=== PATIENT | male | born 1980 | race Two or more races ===

== ENCOUNTER 2021-03-17 06:23 | Inpatient (IN) | payer OTHER ==
[2021-03-17 06:36] VITALS: BMI 29.0
[2021-03-17 08:47] LABS: HEMATOCRIT 31.3 % (35.4-49); MCHC 35.2 g/dl (32.0-35.9); MEAN PLT VOLUME 7.5 fl (7.5-11.1); PLATELET COUNT 216 10^3/uL (134-434); RBC 3.56 M/mm3 (4.00-5.60); RDW 13.2 % (11.9-15.9)
[2021-03-17 08:52] LABS: INR 1.19 (0.83-1.09); PROTHROMBIN TIME (PATIENT) 13.3 SEC (9.7-13.0)
[2021-03-17 08:55] LABS: ACTIVATED PTT 28.8 SECONDS (25.2-36.5)
[2021-03-17 09:06] LABS: CALCIUM 8.9 mg/dL (8.5-10.1)
[2021-03-17 09:08] LABS: BLOOD UREA NITROGEN 39.2 mg/dL (7-18)
[2021-03-17 09:10] LABS: CREATININE 2.2 mg/dL (0.55-1.3)
[2021-03-17 09:11] LABS: BILIRUBIN,TOTAL 0.6 mg/dL (0.2-1); TOT PROT 5.8 g/dl (6.4-8.2)
[2021-03-17] MEDS ORDERED: LACTATED RINGERS SOLUTION 1,000 ML IV SCH (10:00)
[2021-03-17] MEDS ORDERED: HEPARIN NA (PORCINE) 5,000 UNITS/ML 1ML VIAL ONE ×2 (10:19→11:28)
[2021-03-17] MEDS ORDERED: LIDOCAINE HCL 1%, 10 MG/ML (20ML VIAL) ONE (10:19)
[2021-03-17] MEDS ORDERED: NITROGLYCERIN 50 MG/10 ML VIAL IVPB ONE (10:19)
[2021-03-17] MEDS ORDERED: amLODIPine BESYLATE 5 MG TABLET (FP) PO ONE ×2 (10:21→15:27)
[2021-03-17] MEDS ORDERED: LIDOCAINE HCL 1%, 10 MG/ML (20ML VIAL) NR ONE ×3 (10:40→12:19)
[2021-03-17] MEDS ORDERED: IOVERSOL 320 MG/ML ML IV ONE ×2 (10:41→12:30)
[2021-03-17] MEDS ORDERED: HEPARIN NA (PORCINE) 5,000 UNITS/ML 1ML VIAL SQ ONE ×2 (10:41→12:21)
[2021-03-17] MEDS ORDERED: ceFAZolin SODIUM 1 GM VIAL ONE (10:48)
[2021-03-17 10:52] LABS: ANISOCYTOSIS 0; MACROCYTOSIS 0; PLATELET ESTIMATE NORMAL
[2021-03-17] MEDS ORDERED: LIDOCAINE HCL/PF 2% SDV 5ML VIAL ONE (10:52)
[2021-03-17] MEDS ORDERED: DEXMEDETOMIDINE HCL 200 MCG/2 ML IVPB ONE (10:55)
[2021-03-17] MEDS ORDERED: ACETAMINOPHEN INJECTION 100 ML IVPB ONE (10:56)
[2021-03-17] MEDS ORDERED: MIDAZOLAM HCL 2 MG/2 ML SINGLE DOSE VIAL ONE (12:06)
[2021-03-17] MEDS ORDERED: ceFAZolin 2 GRAM PREMIX BAG IVPB ONE (12:10)
[2021-03-17] MEDS ORDERED: ALTEPLASE (CATHFLO) 2 MG/2 ML VIAL CVP ONE (12:35)
[2021-03-17] MEDS ORDERED: hydrALAZINE HCL 20 MG/ML VIAL ONE (13:40)
[2021-03-17] MEDS ORDERED: HEPARIN NA (PORCINE) 5,000 UNITS/ML 1ML VIAL IVPUSH PRN (15:19)
[2021-03-17] MEDS: INSULIN SLIDING SCALE (NOVOLOG) 1 VIAL SQ SCH (16:59)
[2021-03-17 19:22] LABS: EPI CELLS 13 /uL (0-25.1); HYALINE CASTS 2 /uL (0-3.1); URINE APPEARANCE CLEAR; URINE BACTERIA 8 /uL (0-1359); URINE BILIRUBIN NEGATIVE (NEGATIVE); URINE COLOR YELLOW; URINE GLUCOSE (UA) 3+ (NEGATIVE); URINE KETONE NEGATIVE (NEGATIVE); URINE LEUK ESTERASE NEGATIVE (NEGATIVE); URINE NITRITE NEGATIVE (NEGATIVE); URINE PROTEIN 4+ (NEGATIVE); URINE RBC 71 /uL (0-23.9); URINE UROBILINOGEN 0.2 mg/dL (0.2-1.0); URINE WBC 10 /uL (0-25.8)
[2021-03-17] MEDS: HEPARIN - 25,000 UNIT in SODIUM CHLORIDE 495 ML IV SCH (19:42)
[2021-03-18] MEDS: HEPARIN NA (PORCINE) 5,000 UNITS/ML 1ML VIAL IVPUSH PRN ×3 (03:02→21:37)
[2021-03-18] MEDS: INSULIN SLIDING SCALE (NOVOLOG) 1 VIAL SQ SCH ×3 (06:38→17:19)
[2021-03-18] MEDS ORDERED: INSULIN SLIDING SCALE (NOVOLOG) 1 VIAL SQ SCH (08:00)
[2021-03-18] MEDS ORDERED: ONDANSETRON 4 MG/2 ML VIAL IVPUSH PRN (09:33)
[2021-03-18 09:41] LABS: INR 0.9 (0.83-1.09); PROTHROMBIN TIME (PATIENT) 10.5 SEC (9.7-13.0)
[2021-03-18 09:43] LABS: HEMATOCRIT 29.3 % (35.4-49); HEMOGLOBIN 10.1 GM/dL (11.7-16.9); MCH 30.5 pg (25.7-33.7); MCHC 34.4 g/dl (32.0-35.9); MEAN CELL VOLUME 88.6 fl (80-96); MEAN PLT VOLUME 7.8 fl (7.5-11.1); PLATELET COUNT 225 10^3/uL (134-434); RBC 3.31 M/mm3 (4.00-5.60); RDW 13.2 % (11.9-15.9); WHITE BLOOD COUNT 5.9 K/mm3 (4.0-10.0)
[2021-03-18 09:44] LABS: ACTIVATED PTT 32.2 SECONDS (25.2-36.5)
[2021-03-18 09:57] LABS: CALCIUM 8.2 mg/dL (8.5-10.1)
[2021-03-18 09:58] LABS: BLOOD UREA NITROGEN 36.4 mg/dL (7-18); MAGNESIUM 2.1 mg/dL (1.8-2.4)
[2021-03-18] MEDS ORDERED: levETIRAcetam 500 MG TABLET (FP) PO SCH (10:00)
[2021-03-18 10:01] LABS: CREATININE 2.6 mg/dL (0.55-1.3); PHOSPHOROUS 3.7 mg/dL (2.5-4.9)
[2021-03-18 10:02] LABS: BILIRUBIN,TOTAL 0.6 mg/dL (0.2-1); TOT PROT 4.7 g/dl (6.4-8.2)
[2021-03-18 10:07] LABS: ALBUMIN 1.5 g/dl (3.4-5.0)
[2021-03-18] MEDS: amLODIPine BESYLATE 10 MG TABLET (FP) PO SCH (10:16)
[2021-03-18] MEDS: levETIRAcetam 500 MG TABLET (FP) PO SCH ×2 (13:21→21:19)
[2021-03-18] MEDS: HEPARIN - 25,000 UNIT in SODIUM CHLORIDE 495 ML IV SCH ×3 (16:14→22:27)
[2021-03-18] MEDS: SODIUM CHLORIDE 0.45% 1,000 ML IV SCH (16:21)
[2021-03-18] MEDS ORDERED: WARFARIN NA 5 MG TABLET PO ONE (18:00)
[2021-03-18] MEDS ORDERED: WARFARIN PROTOCOL PO SCH (18:00)
[2021-03-18] MEDS: INSULIN (LEVEMIR) 100 UNITS/ML UNITS SQ SCH (21:18)
[2021-03-18] MEDS ORDERED: LISINOPRIL 10 MG TABLET PO SCH (22:00)
[2021-03-19] MEDS: SODIUM CHLORIDE 0.45% 1,000 ML IV SCH ×3 (02:14→15:15)
[2021-03-19] MEDS: INSULIN (LEVEMIR) 100 UNITS/ML UNITS SQ SCH ×2 (06:14→21:12)
[2021-03-19] MEDS: INSULIN (NOVOLOG MIX 70/30) 100 UNITS/ML MDV SQ SCH ×3 (06:15→17:29)
[2021-03-19] MEDS ORDERED: POLYETHYLENE GLYCOL (HEALTHYLAX) 3350 17 GM PACKET PO PRN (06:55)
[2021-03-19 08:37] LABS: HEMATOCRIT 26.7 % (35.4-49); HEMOGLOBIN 9.3 GM/dL (11.7-16.9); MCH 30.6 pg (25.7-33.7); MCHC 34.7 g/dl (32.0-35.9); MEAN CELL VOLUME 88.4 fl (80-96); MEAN PLT VOLUME 7.3 fl (7.5-11.1); PLATELET COUNT 223 10^3/uL (134-434); RBC 3.02 M/mm3 (4.00-5.60); RDW 13.6 % (11.9-15.9)
[2021-03-19 08:42] LABS: INR 0.92 (0.83-1.09); PROTHROMBIN TIME (PATIENT) 10.3 SEC (9.7-13.0)
[2021-03-19 08:45] LABS: ACTIVATED PTT 39.7 SECONDS (25.2-36.5)
[2021-03-19 09:04] LABS: ALBUMIN 1.6 g/dl (3.4-5.0); BLOOD UREA NITROGEN 37.6 mg/dL (7-18); CALCIUM 7.7 mg/dL (8.5-10.1)
[2021-03-19 09:07] LABS: CREATININE 3.1 mg/dL (0.55-1.3)
[2021-03-19 09:08] LABS: BILIRUBIN,TOTAL 0.4 mg/dL (0.2-1); TOT PROT 4.8 g/dl (6.4-8.2)
[2021-03-19] MEDS: amLODIPine BESYLATE 10 MG TABLET (FP) PO SCH (09:42)
[2021-03-19] MEDS: levETIRAcetam 500 MG TABLET (FP) PO SCH ×2 (09:42→21:12)
[2021-03-19] MEDS: HEPARIN NA (PORCINE) 5,000 UNITS/ML 1ML VIAL IVPUSH PRN (09:55)
[2021-03-19] MEDS: HEPARIN - 25,000 UNIT in SODIUM CHLORIDE 495 ML IV SCH (09:56)
[2021-03-19] MEDS: APIXABAN 5 MG TABLET PO SCH ×2 (13:23→21:12)
[2021-03-19] MEDS ORDERED: WARFARIN NA 5 MG TABLET PO SCH (18:00)
[2021-03-19] MEDS ORDERED: ATORVASTATIN CA 20 MG TABLET (FP) PO SCH (22:00)
[2021-03-19] MEDS ORDERED: ATORVASTATIN CA 40 MG TABLET (FP) PO SCH (22:00)
[2021-03-20] MEDS: SODIUM CHLORIDE 0.45% 1,000 ML IV SCH (05:54)
[2021-03-20 08:33] LABS: HEMATOCRIT 27.8 % (35.4-49); HEMOGLOBIN 9.6 GM/dL (11.7-16.9); MCH 30.3 pg (25.7-33.7); MCHC 34.5 g/dl (32.0-35.9); MEAN CELL VOLUME 87.7 fl (80-96); MEAN PLT VOLUME 7.1 fl (7.5-11.1); PLATELET COUNT 220 10^3/uL (134-434); RBC 3.17 M/mm3 (4.00-5.60); RDW 13.9 % (11.9-15.9); WHITE BLOOD COUNT 4.3 K/mm3 (4.0-10.0)
[2021-03-20 09:06] LABS: CALCIUM 8.4 mg/dL (8.5-10.1)
[2021-03-20 09:07] LABS: BLOOD UREA NITROGEN 30.9 mg/dL (7-18)
[2021-03-20 09:10] LABS: CREATININE 2.1 mg/dL (0.55-1.3)
[2021-03-20] MEDS: INSULIN (LEVEMIR) 100 UNITS/ML UNITS SQ SCH (09:47)
[2021-03-20] MEDS: INSULIN (NOVOLOG MIX 70/30) 100 UNITS/ML MDV SQ SCH ×2 (09:47→11:38)
[2021-03-20] MEDS: APIXABAN 5 MG TABLET PO SCH (10:28)
[2021-03-20] MEDS: levETIRAcetam 500 MG TABLET (FP) PO SCH (10:28)
[2021-03-20] MEDS: amLODIPine BESYLATE 10 MG TABLET (FP) PO SCH (10:28)
[2021-03-20 12:33] VITALS: BP 141/88; PULSE 95; TEMP 97.9
== END 2021-03-20 16:24 | disposition home or self-care (01) | DRG 182 ==
LOC: JER 06:23 → JERBED 08:00 → J5S 15:40
PROVIDERS: ATTEND Internal Medicine
PROC: 06CM3ZZ Extirpation of Matter from Right Femoral Vein, Percutaneous Approach (ICD-10-PCS; principal; 2021-03-18)
PROC: 067M3ZZ Dilation of Right Femoral Vein, Percutaneous Approach (ICD-10-PCS; 2021-03-18)
PROC: 067Y3ZZ Dilation of Lower Vein, Percutaneous Approach (ICD-10-PCS; 2021-03-18)
PROC: 3E03317 Introduction of Other Thrombolytic into Peripheral Vein, Percutaneous Approach (ICD-10-PCS; 2021-03-18)
DX: I82.411 Acute embolism and thrombosis of right femoral vein (principal); I82.431 Acute embolism and thrombosis of right popliteal vein; I12.9 Hypertensive chronic kidney disease with stage 1 through stage 4 chronic kidney disease, or unspecified chronic kidney disease; E11.22 Type 2 diabetes mellitus with diabetic chronic kidney disease; N18.32 Chronic kidney disease, stage 3b; N17.9 Acute kidney failure, unspecified; R11.2 Nausea with vomiting, unspecified; G40.909 Epilepsy, unspecified, not intractable, without status epilepticus
CPT/HCPCS: 36415; 71046-TC-FY; 76000-TC-FY; 76775-TC; 76856-TC; 80048; 80053; 80061; 81003; 82570; 82962; 83036; 83735; 84100; 84156; 84300; 85025; 85027; 85610; 85730; 86850; 86900; 86901; 93005; 93010; 94760; 99285-25; C9803; J0131; J1644; J2997; U0003; U0005

== ENCOUNTER 2021-06-25 08:52 | Inpatient (IN) | payer OTHER ==
[~2021-06-25 08:52] MED LIST: HEPARIN NA (PORCINE) 5,000 UNITS/ML 1ML VIAL SQ ONE; IOVERSOL 320 MG/ML ML IV ONE; LIDOCAINE HCL 1%, 10 MG/ML (20ML VIAL) NR ONE
[2021-06-25] MEDS ORDERED: ACETAMINOPHEN 1000 MG/100 ML BAG IVPB ONE (09:51)
[2021-06-25] MEDS ORDERED: ACETAMINOPHEN INJECTION 100 ML IVPB ONE (09:54)
[2021-06-25 10:13] LABS: BASO % 0.7 % (0-2.0); EOS % 1.4 % (0-4.5); HEMOGLOBIN 10.7 GM/dL (11.7-16.9); LYMPH % 29.5 % (8-40); MCH 29.2 pg (25.7-33.7); MCHC 32.3 g/dl (32.0-35.9); MEAN CELL VOLUME 90.3 fl (80-96); MEAN PLT VOLUME 7.8 fl (7.5-11.1); MONO % 8.8 % (3.8-10.2); NEUT % 59.6 % (42.8-82.8); PLATELET COUNT 267 10^3/uL (134-434); RBC 3.66 M/mm3 (4.00-5.60); RDW 14.9 % (11.9-15.9); WHITE BLOOD COUNT 3.7 K/mm3 (4.0-10.0)
[2021-06-25 10:18] LABS: INR 0.91 (0.83-1.09); PROTHROMBIN TIME (PATIENT) 10.4 SEC (9.7-13.0)
[2021-06-25 10:20] LABS: ACTIVATED PTT 24.7 SECONDS (25.2-36.5)
[2021-06-25 10:37] LABS: CHLORIDE 119 mmol/L (98-107); SODIUM 147 mmol/L (136-145)
[2021-06-25 10:39] LABS: CALCIUM 8.4 mg/dL (8.5-10.1)
[2021-06-25 10:40] LABS: ALBUMIN 2.1 g/dl (3.4-5.0); ANION GAP 3 MMOL/L (8-16); BLOOD UREA NITROGEN 17.2 mg/dL (7-18); CO2 26 mmol/L (21-32); GLUCOSE,RANDOM 138 mg/dL (74-106)
[2021-06-25 10:43] LABS: CREATININE 1.8 mg/dL (0.55-1.3); SGOT/AST 14 U/L (15-37); SGPT/ALT 14 U/L (13-61)
[2021-06-25 10:44] LABS: TOT PROT 5.8 g/dl (6.4-8.2)
[2021-06-25 10:45] LABS: BILIRUBIN,TOTAL 0.5 mg/dL (0.2-1)
[2021-06-25 10:46] LABS: ALK PHOS 109 U/L (45-117)
[2021-06-25] MEDS ORDERED: ACETAMINOPHEN 325 MG TABLET (FP) PO PRN ×2 (13:35→18:14)
[2021-06-25] MEDS ORDERED: SODIUM CHLORIDE 0.45% 1,000 ML IV SCH ×2 (13:45→18:14)
[2021-06-25] MEDS ORDERED: SODIUM CHLORIDE 1,000 ML IV SCH (13:45)
[2021-06-25] MEDS ORDERED: PROMETHAZINE HCL 25 MG/1 ML VIAL IVPUSH PRN ×2 (13:48→18:14)
[2021-06-25] MEDS ORDERED: ONDANSETRON 4 MG/2 ML VIAL IVPUSH PRN ×2 (13:48→18:14)
[2021-06-25] MEDS ORDERED: HEPARIN NA (PORCINE) 5,000 UNITS/ML 1ML VIAL ONE (13:50)
[2021-06-25] MEDS ORDERED: LIDOCAINE HCL 1%, 10 MG/ML (20ML VIAL) ONE (13:50)
[2021-06-25] MEDS ORDERED: LACTATED RINGERS SOLUTION 1,000 ML IV SCH ×2 (14:00→18:14)
[2021-06-25] MEDS ORDERED: PROPOFOL 20 ML ONE (14:01)
[2021-06-25] MEDS ORDERED: MIDAZOLAM HCL 2 MG/2 ML SINGLE DOSE VIAL ONE (14:02)
[2021-06-25] MEDS ORDERED: ceFAZolin SODIUM 1 GM VIAL IVPB ONE (14:26)
[2021-06-25] MEDS ORDERED: LIDOCAINE HCL 1%, 10 MG/ML (20ML VIAL) NR ONE (14:27)
[2021-06-25] MEDS ORDERED: HEPARIN NA (PORCINE) 5,000 UNITS/ML 1ML VIAL SQ ONE (14:52)
[2021-06-25] MEDS ORDERED: IOVERSOL 320 MG/ML ML IV ONE (14:52)
[2021-06-25] MEDS ORDERED: ALTEPLASE (CATHFLO) 2 MG/2 ML VIAL CVP ONE (14:57)
[2021-06-25] MEDS ORDERED: hydrALAZINE HCL 20 MG/ML VIAL ONE ×2 (15:57→17:30)
[2021-06-25] MEDS ORDERED: METOPROLOL TARTRATE 5 MG/5 ML VIAL ONE (15:57)
[2021-06-25] MEDS ORDERED: ONDANSETRON 4 MG/2 ML VIAL ONE (16:05)
[2021-06-25] MEDS ORDERED: oxyCODONE HCL 5 MG TABLET PO PRN (16:10)
[2021-06-25] MEDS ORDERED: INSULIN SLIDING SCALE (NOVOLOG) 1 VIAL SQ SCH (16:30)
[2021-06-25] MEDS ORDERED: hydrALAZINE HCL 20 MG/ML VIAL IVPUSH ONE (17:33)
[2021-06-25] MEDS: SODIUM CHLORIDE 0.45% 1,000 ML IV SCH (18:16)
[2021-06-25] MEDS ORDERED: ONDANSETRON 4 MG/2 ML VIAL IVPUSH ONE (20:05)
[2021-06-25] MEDS: ENOXAPARIN NA (PORCINE) 80 MG/0.8 ML DISP.SYRIN SQ SCH (21:32)
[2021-06-25] MEDS: ATORVASTATIN CA 40 MG TABLET (FP) PO SCH (21:32)
[2021-06-25] MEDS: levETIRAcetam 500 MG TABLET (FP) PO SCH (21:32)
[2021-06-25] MEDS: INSULIN (LEVEMIR) 100 UNITS/ML UNITS SQ SCH (21:33)
[2021-06-25] MEDS: INSULIN SLIDING SCALE (NOVOLOG) 1 VIAL SQ SCH (21:33)
[2021-06-25] MEDS ORDERED: levETIRAcetam 500 MG TABLET (FP) PO SCH (22:00)
[2021-06-25] MEDS ORDERED: ATORVASTATIN CA 40 MG TABLET (FP) PO SCH (22:00)
[2021-06-25] MEDS ORDERED: INSULIN (LEVEMIR) 100 UNITS/ML UNITS SQ SCH (22:00)
[2021-06-25] MEDS ORDERED: ENOXAPARIN NA (PORCINE) 100 MG/1 ML DISP.SYRIN SQ SCH ×2 (22:00)
[2021-06-26] MEDS: INSULIN (LEVEMIR) 100 UNITS/ML UNITS SQ SCH ×2 (06:10→21:43)
[2021-06-26] MEDS: INSULIN SLIDING SCALE (NOVOLOG) 1 VIAL SQ SCH ×4 (06:10→21:42)
[2021-06-26] MEDS: SODIUM CHLORIDE 0.45% 1,000 ML IV SCH (08:03)
[2021-06-26] MEDS ORDERED: ONDANSETRON 4 MG/2 ML VIAL IVPUSH PRN (09:01)
[2021-06-26 09:09] LABS: BASO % 0.7 % (0-2.0); EOS % 1.5 % (0-4.5); HEMATOCRIT 26.8 % (35.4-49); LYMPH % 20.4 % (8-40); MCHC 33.5 g/dl (32.0-35.9); MEAN CELL VOLUME 89.4 fl (80-96); MEAN PLT VOLUME 7.6 fl (7.5-11.1); MONO % 10.2 % (3.8-10.2); NEUT % 67.2 % (42.8-82.8); PLATELET COUNT 200 10^3/uL (134-434); RDW 14.8 % (11.9-15.9); WHITE BLOOD COUNT 4.9 K/mm3 (4.0-10.0)
[2021-06-26 09:38] LABS: ALBUMIN 1.7 g/dl (3.4-5.0)
[2021-06-26 09:39] LABS: CREATININE 2.7 mg/dL (0.55-1.3)
[2021-06-26 09:40] LABS: BLOOD UREA NITROGEN 23.6 mg/dL (7-18); PHOSPHOROUS 4.4 mg/dL (2.5-4.9); TOT PROT 4.7 g/dl (6.4-8.2)
[2021-06-26 09:41] LABS: CALCIUM 7.9 mg/dL (8.5-10.1); MAGNESIUM 1.8 mg/dL (1.8-2.4)
[2021-06-26] MEDS: levETIRAcetam 500 MG TABLET (FP) PO SCH ×2 (09:58→21:41)
[2021-06-26] MEDS: ENOXAPARIN NA (PORCINE) 80 MG/0.8 ML DISP.SYRIN SQ SCH ×2 (09:58→21:41)
[2021-06-26] MEDS: DOCUSATE SODIUM 100 MG CAPSULE (FP) PO SCH (09:58)
[2021-06-26] MEDS: Insulin (LOG) Aspart 100 UNITS/ML VIAL SQ SCH ×2 (11:15→17:07)
[2021-06-26] MEDS ORDERED: SODIUM CHLORIDE 1,000 ML IV STA (11:17)
[2021-06-26 15:41] LABS: BLOOD UREA NITROGEN 23.7 mg/dL (7-18); CALCIUM 7.9 mg/dL (8.5-10.1)
[2021-06-26 15:45] LABS: CREATININE 2.9 mg/dL (0.55-1.3)
[2021-06-26] MEDS ORDERED: hydrALAZINE HCL 10 MG TABLET PO PRN (16:33)
[2021-06-26] MEDS: amLODIPine BESYLATE 5 MG TABLET (FP) PO SCH (17:39)
[2021-06-26 17:47] LABS: EPI CELLS 19 /uL (0-25.1); HYALINE CASTS 2 /uL (0-3.1); URINE APPEARANCE CLEAR; URINE BACTERIA 13 /uL (0-1359); URINE BILIRUBIN NEGATIVE (NEGATIVE); URINE COLOR YELLOW; URINE GLUCOSE (UA) 2+ (NEGATIVE); URINE KETONE NEGATIVE (NEGATIVE); URINE LEUK ESTERASE NEGATIVE (NEGATIVE); URINE NITRITE NEGATIVE (NEGATIVE); URINE PROTEIN 4+ (NEGATIVE); URINE RBC 24 /uL (0-23.9); URINE WBC 11 /uL (0-25.8)
[2021-06-26 19:12] VITALS: BMI 28.8
[2021-06-26] MEDS: ATORVASTATIN CA 40 MG TABLET (FP) PO SCH (21:41)
[2021-06-27] MEDS: Insulin (LOG) Aspart 100 UNITS/ML VIAL SQ SCH ×3 (06:22→17:39)
[2021-06-27] MEDS: INSULIN SLIDING SCALE (NOVOLOG) 1 VIAL SQ SCH ×4 (06:23→21:15)
[2021-06-27] MEDS: INSULIN (LEVEMIR) 100 UNITS/ML UNITS SQ SCH ×2 (06:35→21:15)
[2021-06-27] MEDS: DOCUSATE SODIUM 100 MG CAPSULE (FP) PO SCH (10:02)
[2021-06-27] MEDS: levETIRAcetam 500 MG TABLET (FP) PO SCH ×2 (10:02→21:14)
[2021-06-27] MEDS: amLODIPine BESYLATE 5 MG TABLET (FP) PO SCH (10:02)
[2021-06-27] MEDS: ENOXAPARIN NA (PORCINE) 80 MG/0.8 ML DISP.SYRIN SQ SCH (10:02)
[2021-06-27 10:31] LABS: BASO % 0.4 % (0-2.0); EOS % 2.2 % (0-4.5); HEMOGLOBIN 8.7 GM/dL (11.7-16.9); MCHC 33.5 g/dl (32.0-35.9); MEAN CELL VOLUME 89.4 fl (80-96); MEAN PLT VOLUME 7.6 fl (7.5-11.1); MONO % 10.1 % (3.8-10.2); NEUT % 63.3 % (42.8-82.8); PLATELET COUNT 190 10^3/uL (134-434); RDW 14.7 % (11.9-15.9); WHITE BLOOD COUNT 4.2 K/mm3 (4.0-10.0)
[2021-06-27 10:52] LABS: CALCIUM 7.6 mg/dL (8.5-10.1)
[2021-06-27 10:53] LABS: ALBUMIN 1.7 g/dl (3.4-5.0); BLOOD UREA NITROGEN 30.4 mg/dL (7-18)
[2021-06-27 10:56] LABS: CREATININE 4.1 mg/dL (0.55-1.3)
[2021-06-27 10:57] LABS: BILIRUBIN,TOTAL 0.4 mg/dL (0.2-1); TOT PROT 4.7 g/dl (6.4-8.2)
[2021-06-27] MEDS ORDERED: ENOXAPARIN NA (PORCINE) 60 MG/0.6 ML DISP.SYRIN SQ ONE (16:00)
[2021-06-27] MEDS: ATORVASTATIN CA 40 MG TABLET (FP) PO SCH (21:14)
[2021-06-27] MEDS ORDERED: hydrALAZINE HCL 10 MG TABLET PO SCH (22:00)
[2021-06-28] MEDS ORDERED: hydrALAZINE HCL 10 MG TABLET PO SCH (05:34)
[2021-06-28] MEDS: hydrALAZINE HCL 25 MG TABLET (FP) PO SCH ×4 (05:51→21:41)
[2021-06-28] MEDS: Insulin (LOG) Aspart 100 UNITS/ML VIAL SQ SCH ×3 (06:05→17:15)
[2021-06-28] MEDS: INSULIN SLIDING SCALE (NOVOLOG) 1 VIAL SQ SCH ×4 (06:05→21:47)
[2021-06-28] MEDS: INSULIN (LEVEMIR) 100 UNITS/ML UNITS SQ SCH ×2 (06:27→21:49)
[2021-06-28] MEDS: amLODIPine BESYLATE 10 MG TABLET (FP) PO SCH (09:02)
[2021-06-28] MEDS: levETIRAcetam 500 MG TABLET (FP) PO SCH ×2 (09:02→21:42)
[2021-06-28] MEDS: DOCUSATE SODIUM 100 MG CAPSULE (FP) PO SCH (09:05)
[2021-06-28] MEDS: ENOXAPARIN NA (PORCINE) 100 MG/1 ML DISP.SYRIN SQ SCH (11:29)
[2021-06-28] MEDS ORDERED: hydrALAZINE HCL 25 MG TABLET (FP) PO ONE ×2 (12:00→17:27)
[2021-06-28 13:19] LABS: CALCIUM 7.7 mg/dL (8.5-10.1)
[2021-06-28 13:20] LABS: BLOOD UREA NITROGEN 29.4 mg/dL (7-18)
[2021-06-28 13:23] LABS: CREATININE 3.9 mg/dL (0.55-1.3)
[2021-06-28] MEDS ORDERED: WARFARIN NA 5 MG TABLET PO SCH (18:00)
[2021-06-28] MEDS ORDERED: WARFARIN PROTOCOL PO SCH (18:00)
[2021-06-28] MEDS: ATORVASTATIN CA 40 MG TABLET (FP) PO SCH (21:41)
[2021-06-29] MEDS: ACETAMINOPHEN 325 MG TABLET (FP) PO PRN ×2 (01:29→07:46)
[2021-06-29] MEDS: hydrALAZINE HCL 25 MG TABLET (FP) PO SCH ×2 (06:07→14:52)
[2021-06-29] MEDS: INSULIN (LEVEMIR) 100 UNITS/ML UNITS SQ SCH (06:07)
[2021-06-29] MEDS: Insulin (LOG) Aspart 100 UNITS/ML VIAL SQ SCH ×2 (06:08→12:15)
[2021-06-29] MEDS: INSULIN SLIDING SCALE (NOVOLOG) 1 VIAL SQ SCH ×2 (06:08→12:15)
[2021-06-29] MEDS: levETIRAcetam 500 MG TABLET (FP) PO SCH (09:55)
[2021-06-29] MEDS: ENOXAPARIN NA (PORCINE) 100 MG/1 ML DISP.SYRIN SQ SCH (09:55)
[2021-06-29] MEDS: amLODIPine BESYLATE 10 MG TABLET (FP) PO SCH (09:55)
[2021-06-29] MEDS: DOCUSATE SODIUM 100 MG CAPSULE (FP) PO SCH (09:58)
[2021-06-29 10:34] LABS: INR 0.91 (0.83-1.09); PROTHROMBIN TIME (PATIENT) 10.4 SEC (9.7-13.0)
[2021-06-29 10:49] LABS: CALCIUM 7.8 mg/dL (8.5-10.1)
[2021-06-29 10:50] LABS: ALBUMIN 1.9 g/dl (3.4-5.0); BLOOD UREA NITROGEN 32.2 mg/dL (7-18)
[2021-06-29 10:53] LABS: CREATININE 3.7 mg/dL (0.55-1.3); PHOSPHOROUS 4.5 mg/dL (2.5-4.9)
[2021-06-29 10:54] LABS: BILIRUBIN,TOTAL 0.4 mg/dL (0.2-1); TOT PROT 5.1 g/dl (6.4-8.2)
[2021-06-29 12:02] VITALS: TEMP 98
[2021-06-29 15:12] VITALS: BP 138/86; PULSE 104
[2021-06-29] MEDS ORDERED: WARFARIN NA 7.5 MG TABLET PO ONE (18:00)
== END 2021-06-29 16:37 | disposition left against medical advice (07) | DRG 182 ==
LOC: JER 08:52 → JERBED 12:25 → J5S 18:33
PROVIDERS: ADMIT Internal Medicine; ATTEND Internal Medicine
PROC: 067M3ZZ Dilation of Right Femoral Vein, Percutaneous Approach (ICD-10-PCS; 2021-06-25)
PROC: 3E04317 Introduction of Other Thrombolytic into Central Vein, Percutaneous Approach (ICD-10-PCS; 2021-06-25)
PROC: B51BZZA Fluoroscopy of Right Lower Extremity Veins, Guidance (ICD-10-PCS; 2021-06-25)
PROC: 06CM3ZZ Extirpation of Matter from Right Femoral Vein, Percutaneous Approach (ICD-10-PCS; principal; 2021-06-25 13:00)
DX: I82.401 Acute embolism and thrombosis of unspecified deep veins of right lower extremity (principal); N17.9 Acute kidney failure, unspecified; D68.59 Other primary thrombophilia; E87.0 Hyperosmolality and hypernatremia; I12.9 Hypertensive chronic kidney disease with stage 1 through stage 4 chronic kidney disease, or unspecified chronic kidney disease; N18.9 Chronic kidney disease, unspecified; D68.32 Hemorrhagic disorder due to extrinsic circulating anticoagulants; R60.0 Localized edema; E10.22 Type 1 diabetes mellitus with diabetic chronic kidney disease; G40.909 Epilepsy, unspecified, not intractable, without status epilepticus; M79.661 Pain in right lower leg; R80.9 Proteinuria, unspecified
CPT/HCPCS: 36415; 71045-TC-FY; 71275-TC; 76000-TC-FY; 76775-TC; 80048; 80053; 81003; 82436; 82550; 82553; 82962; 83036; 83735; 83880; 84100; 84133; 84300; 84484; 85025; 85610; 85730; 86850; 86900; 86901; 93005; 93010; 94010; 94760; 99285-25; C9803; J0131; J1644; J2997; U0003; U0005

== ENCOUNTER 2021-11-09 12:12 | Inpatient (IN) | payer OTHER ==
[2021-11-09] MEDS ORDERED: ASPIRIN 81 MG CHEWABLE TABLETS PO ONE (13:04)
[2021-11-09] MEDS ORDERED: ACETAMINOPHEN 1000 MG/100 ML BAG IVPB ONE (13:05)
[2021-11-09 13:21] LABS: BASO % 0.8 % (0-2.0); HEMATOCRIT 27.9 % (35.4-49); HEMOGLOBIN 9.4 GM/dL (11.7-16.9); LYMPH % 27.2 % (8-40); MCH 29.9 pg (25.7-33.7); MCHC 33.7 g/dl (32.0-35.9); MEAN CELL VOLUME 88.8 fl (80-96); MEAN PLT VOLUME 7.4 fl (7.5-11.1); MONO % 8.7 % (3.8-10.2); NEUT % 62.3 % (42.8-82.8); PLATELET COUNT 188 10^3/uL (134-434); RBC 3.15 M/mm3 (4.00-5.60); RDW 15.2 % (11.9-15.9)
[2021-11-09] MEDS ORDERED: ACETAMINOPHEN INJECTION 100 ML IVPB ONE (13:23)
[2021-11-09] MEDS ORDERED: ASPIRIN 81 MG CHEWABLE TABLETS ONE (13:23)
[2021-11-09 13:29] LABS: INR 3.15 (0.83-1.09); PROTHROMBIN TIME (PATIENT) 36.7 SEC (9.7-13.0)
[2021-11-09 13:31] LABS: ACTIVATED PTT 33.7 SECONDS (25.2-36.5)
[2021-11-09 13:52] LABS: CALCIUM 7.4 mg/dL (8.5-10.1)
[2021-11-09 13:53] LABS: ALBUMIN 2.3 g/dl (3.4-5.0); BLOOD UREA NITROGEN 45.4 mg/dL (7-18)
[2021-11-09 13:56] LABS: CREATININE 3.4 mg/dL (0.55-1.3); PHOSPHOROUS 3.9 mg/dL (2.5-4.9)
[2021-11-09 13:58] LABS: BILIRUBIN,TOTAL 0.4 mg/dL (0.2-1); TOT PROT 5.5 g/dl (6.4-8.2)
[2021-11-09 14:01] LABS: N-TERMINAL BNP 5890.2 pg/ml (5-125)
[2021-11-09] MEDS ORDERED: SODIUM CHLORIDE 0.9% 500 ML INFUS.BAG IV ONE (15:54)
[2021-11-09] MEDS: hydrALAZINE HCL 50 MG TABLET (FP) PO SCH (21:46)
[2021-11-09] MEDS: levETIRAcetam 500 MG TABLET (FP) PO SCH (21:46)
[2021-11-09] MEDS: CARVEDILOL 6.25 MG TABLET (FP) PO SCH (21:46)
[2021-11-09] MEDS: ISOSORBIDE MONONITRATE 30 MG TAB.SR.24H (FP) PO SCH (21:46)
[2021-11-09] MEDS: ATORVASTATIN CA 40 MG TABLET (FP) PO SCH (21:46)
[2021-11-09] MEDS: INSULIN SLIDING SCALE (NOVOLOG) 1 VIAL SQ SCH (21:49)
[2021-11-09] MEDS ORDERED: LISINOPRIL 20 MG TABLET PO SCH (22:00)
[2021-11-09] MEDS: HEPARIN - 25,000 UNIT in SODIUM CHLORIDE 495 ML IV SCH (22:28)
[2021-11-10 00:53] VITALS: BMI 28.7
[2021-11-10] MEDS: HEPARIN NA (PORCINE) 5,000 UNITS/ML 1ML VIAL IVPUSH PRN ×3 (05:47→23:24)
[2021-11-10] MEDS: hydrALAZINE HCL 50 MG TABLET (FP) PO SCH ×3 (06:45→21:26)
[2021-11-10] MEDS: INSULIN SLIDING SCALE (NOVOLOG) 1 VIAL SQ SCH ×4 (06:45→21:29)
[2021-11-10 07:39] LABS: INR 3.08 (0.83-1.09); PROTHROMBIN TIME (PATIENT) 35.8 SEC (9.7-13.0)
[2021-11-10] MEDS: levETIRAcetam 500 MG TABLET (FP) PO SCH ×2 (09:58→21:26)
[2021-11-10] MEDS: ISOSORBIDE MONONITRATE 30 MG TAB.SR.24H (FP) PO SCH (09:58)
[2021-11-10] MEDS: CARVEDILOL 6.25 MG TABLET (FP) PO SCH ×2 (09:58→21:26)
[2021-11-10] MEDS ORDERED: WARFARIN NA 5 MG TABLET PO SCH (18:00)
[2021-11-10] MEDS: ATORVASTATIN CA 40 MG TABLET (FP) PO SCH (21:26)
[2021-11-10] MEDS: HEPARIN - 25,000 UNIT in SODIUM CHLORIDE 495 ML IV SCH (23:20)
[2021-11-11] MEDS: hydrALAZINE HCL 50 MG TABLET (FP) PO SCH ×3 (06:23→21:51)
[2021-11-11] MEDS: INSULIN SLIDING SCALE (NOVOLOG) 1 VIAL SQ SCH ×4 (06:24→22:30)
[2021-11-11 08:26] LABS: BASO % 0.6 % (0-2.0); EOS % 0.9 % (0-4.5); HEMOGLOBIN 10.8 GM/dL (11.7-16.9); LYMPH % 30.7 % (8-40); MCH 30.2 pg (25.7-33.7); MCHC 33.6 g/dl (32.0-35.9); MEAN CELL VOLUME 89.9 fl (80-96); MEAN PLT VOLUME 7.9 fl (7.5-11.1); NEUT % 61.8 % (42.8-82.8); PLATELET COUNT 214 10^3/uL (134-434); RBC 3.56 M/mm3 (4.00-5.60); RDW 15.2 % (11.9-15.9); WHITE BLOOD COUNT 4.8 K/mm3 (4.0-10.0)
[2021-11-11 08:28] LABS: INR 1.45 (0.83-1.09); PROTHROMBIN TIME (PATIENT) 16.7 SEC (9.7-13.0)
[2021-11-11 08:52] LABS: ALBUMIN 2.5 g/dl (3.4-5.0)
[2021-11-11 08:53] LABS: BLOOD UREA NITROGEN 41.9 mg/dL (7-18); CALCIUM 7.8 mg/dL (8.5-10.1); MAGNESIUM 2.1 mg/dL (1.8-2.4)
[2021-11-11 08:56] LABS: CREATININE 3.3 mg/dL (0.55-1.3)
[2021-11-11 08:57] LABS: BILIRUBIN,TOTAL 1.3 mg/dL (0.2-1); TOT PROT 6.1 g/dl (6.4-8.2)
[2021-11-11] MEDS: levETIRAcetam 500 MG TABLET (FP) PO SCH ×2 (09:50→21:51)
[2021-11-11] MEDS: ISOSORBIDE MONONITRATE 30 MG TAB.SR.24H (FP) PO SCH (09:50)
[2021-11-11] MEDS: CARVEDILOL 12.5 MG TABLET (FP) PO SCH ×2 (09:51→21:51)
[2021-11-11] MEDS: HEPARIN NA (PORCINE) 5,000 UNITS/ML 1ML VIAL IVPUSH PRN ×2 (09:58→23:23)
[2021-11-11] MEDS: ATORVASTATIN CA 40 MG TABLET (FP) PO SCH (21:51)
[2021-11-11] MEDS: HEPARIN - 25,000 UNIT in SODIUM CHLORIDE 495 ML IV SCH (23:19)
[2021-11-12 03:20] VITALS: BP 140/82; PULSE 93; TEMP 98.6
== END 2021-11-12 03:23 | disposition short-term general hospital (02) | DRG 134 ==
LOC: JER 12:12 → JERBED 16:12 → J4W 20:23
PROVIDERS: ADMIT Internal Medicine
DX: I26.99 Other pulmonary embolism without acute cor pulmonale (principal); D68.59 Other primary thrombophilia; I13.0 Hypertensive heart and chronic kidney disease with heart failure and stage 1 through stage 4 chronic kidney disease, or unspecified chronic kidney disease; E11.22 Type 2 diabetes mellitus with diabetic chronic kidney disease; I50.22 Chronic systolic (congestive) heart failure; G40.909 Epilepsy, unspecified, not intractable, without status epilepticus; E78.00 Pure hypercholesterolemia, unspecified; R80.9 Proteinuria, unspecified; D64.9 Anemia, unspecified; N18.9 Chronic kidney disease, unspecified; I27.82 Chronic pulmonary embolism; I82.531 Chronic embolism and thrombosis of right popliteal vein
CPT/HCPCS: 0241U-QW; 36415; 71045-TC-FY; 71275-TC; 80053; 80061; 82962; 83735; 83880; 84100; 84443; 84484; 85025; 85610; 85730; 93005; 93010; 93306-TC; 93971-TC; 99285-25; J1644; Q9967

== ENCOUNTER 2022-09-02 13:05 | Inpatient (IN) | payer OTHER ==
[2022-09-02] MEDS ORDERED: HEPARIN NA (PORCINE) 5,000 UNITS/ML 1ML VIAL ONE (14:08)
[2022-09-02] MEDS ORDERED: LIDOCAINE HCL/PF 1% SDV 5ML VIAL ONE ×2 (14:08→14:10)
[2022-09-02 14:20] LABS: BASO % 0.9 % (0-2.0); EOS % 0.8 % (0-4.5); HEMATOCRIT 25.1 % (35.4-49); HEMOGLOBIN 8.7 GM/dL (11.7-16.9); LYMPH % 17.4 % (8-40); MCH 30.8 pg (25.7-33.7); MCHC 34.7 g/dl (32.0-35.9); MEAN CELL VOLUME 88.7 fl (80-96); MEAN PLT VOLUME 7.8 fl (7.5-11.1); MONO % 10.5 % (3.8-10.2); NEUT % 70.4 % (42.8-82.8); PLATELET COUNT 141 10^3/uL (134-434); RBC 2.83 M/mm3 (4.00-5.60); RDW 13.5 % (11.9-15.9); WHITE BLOOD COUNT 5.7 K/mm3 (4.0-10.0)
[2022-09-02 14:26] LABS: INR 3.08 (0.83-1.09); PROTHROMBIN TIME (PATIENT) 35.3 SEC (9.7-13.0)
[2022-09-02 14:29] LABS: ACTIVATED PTT 26.4 SECONDS (25.2-36.5)
[2022-09-02 14:40] LABS: CHLORIDE 112 mmol/L (98-107); SODIUM 140 mmol/L (136-145)
[2022-09-02 14:42] LABS: ALBUMIN 2.5 g/dl (3.4-5.0); ANION GAP 6 MMOL/L (8-16); BLOOD UREA NITROGEN 59.8 mg/dL (7-18); CO2 22 mmol/L (21-32); GLUCOSE,RANDOM 208 mg/dL (74-106); MAGNESIUM 2.3 mg/dL (1.8-2.4)
[2022-09-02 14:45] LABS: CREATININE 4.8 mg/dL (0.55-1.3); SGOT/AST 18 U/L (15-37); SGPT/ALT 21 U/L (13-61)
[2022-09-02] MEDS ORDERED: PROMETHAZINE HCL 25 MG/1 ML VIAL IVPB PRN (14:46)
[2022-09-02] MEDS ORDERED: ONDANSETRON 4 MG/2 ML VIAL IVPUSH PRN (14:46)
[2022-09-02 14:47] LABS: BILIRUBIN,TOTAL 0.5 mg/dL (0.2-1); TOT PROT 6.2 g/dl (6.4-8.2)
[2022-09-02 14:48] LABS: ALK PHOS 78 U/L (45-117)
[2022-09-02 14:52] LABS: CALCIUM 6.3 mg/dL (8.5-10.1)
[2022-09-02] MEDS ORDERED: MIDAZOLAM HCL 2 MG/2 ML SINGLE DOSE VIAL ONE (14:55)
[2022-09-02] MEDS ORDERED: PROPOFOL 20 ML ONE ×2 (14:55→16:21)
[2022-09-02] MEDS ORDERED: CALCIUM GLUCONATE 10% - 1,000 MG/10 ML VIAL IVPUSH ONE (14:55)
[2022-09-02] MEDS ORDERED: ceFAZolin SODIUM 1 GM VIAL ONE (14:56)
[2022-09-02] MEDS ORDERED: LIDOCAINE HCL/PF 2% SDV 5ML VIAL ONE (14:56)
[2022-09-02] MEDS ORDERED: SODIUM CHLORIDE 0.9% P/F 10 ML VIAL IJ ONE (14:56)
[2022-09-02] MEDS ORDERED: SODIUM CHLORIDE 1,000 ML IV SCH (15:00)
[2022-09-02] MEDS ORDERED: ALTEPLASE (CATHFLO) 2 MG/2 ML VIAL CVP ONE ×2 (15:00)
[2022-09-02] MEDS ORDERED: ceFAZolin SODIUM 1 GM VIAL IVPB ONE (15:27)
[2022-09-02] MEDS ORDERED: METOCLOPRAMIDE HCL INJECTION 10 MG/2 ML VIAL ONE (15:42)
[2022-09-02 20:12] VITALS: BMI 30.9
[2022-09-02] MEDS ORDERED: hydrALAZINE HCL 20 MG/ML VIAL IVPUSH PRN (20:19)
[2022-09-02] MEDS ORDERED: CHLORHEXIDINE GLUCONATE 4% CLEANSER FOR DECOLONIZATION TP SCH (22:00)
[2022-09-02] MEDS ORDERED: MUPIROCIN 2% TOPICAL OINTMENT FOR DECOLONIZATION NS SCH (22:00)
[2022-09-02] MEDS: LISINOPRIL 20 MG TABLET PO SCH (22:45)
[2022-09-02] MEDS: CHLORHEXIDINE GLUCONATE 4% CLEANSER FOR DECOLONIZATION TP SCH (22:45)
[2022-09-02] MEDS: levETIRAcetam 500 MG TABLET (FP) PO SCH (22:45)
[2022-09-02] MEDS: ATORVASTATIN CA 40 MG TABLET (FP) PO SCH (22:45)
[2022-09-02] MEDS: HEPARIN NA (PORCINE) 5,000 UNITS/ML 1ML VIAL SQ SCH (22:45)
[2022-09-02] MEDS: hydrALAZINE HCL 50 MG TABLET (FP) PO SCH (22:45)
[2022-09-02] MEDS: MUPIROCIN 2% TOPICAL OINTMENT FOR DECOLONIZATION NS SCH (22:46)
[2022-09-03] MEDS: hydrALAZINE HCL 50 MG TABLET (FP) PO SCH ×3 (05:53→21:43)
[2022-09-03] MEDS: HEPARIN NA (PORCINE) 5,000 UNITS/ML 1ML VIAL SQ SCH ×2 (05:53→13:53)
[2022-09-03] MEDS: MUPIROCIN 2% TOPICAL OINTMENT FOR DECOLONIZATION NS SCH ×2 (09:47→21:44)
[2022-09-03] MEDS: levETIRAcetam 500 MG TABLET (FP) PO SCH ×2 (09:47→21:43)
[2022-09-03] MEDS: LISINOPRIL 20 MG TABLET PO SCH (09:47)
[2022-09-03] MEDS ORDERED: FUROSEMIDE 40 MG TABLET (FP) PO SCH (10:00)
[2022-09-03 12:05] LABS: BASO % 0.8 % (0-2.0); EOS % 0.2 % (0-4.5); HEMATOCRIT 25.7 % (35.4-49); HEMOGLOBIN 8.8 GM/dL (11.7-16.9); MCH 30.4 pg (25.7-33.7); MCHC 34.1 g/dl (32.0-35.9); MEAN CELL VOLUME 89.3 fl (80-96); MEAN PLT VOLUME 7.6 fl (7.5-11.1); MONO % 7.7 % (3.8-10.2); NEUT % 81.3 % (42.8-82.8); PLATELET COUNT 144 10^3/uL (134-434); RBC 2.88 M/mm3 (4.00-5.60); RDW 13.7 % (11.9-15.9); WHITE BLOOD COUNT 8.7 K/mm3 (4.0-10.0)
[2022-09-03 12:10] LABS: INR 3.99 (0.83-1.09); PROTHROMBIN TIME (PATIENT) 45.7 SEC (9.7-13.0)
[2022-09-03 12:13] LABS: ACTIVATED PTT 35.2 SECONDS (25.2-36.5)
[2022-09-03 12:24] LABS: CHLORIDE 109 mmol/L (98-107); SODIUM 138 mmol/L (136-145)
[2022-09-03 12:27] LABS: ALBUMIN 2.4 g/dl (3.4-5.0); ANION GAP 8 MMOL/L (8-16); BLOOD UREA NITROGEN 63.5 mg/dL (7-18); CO2 20 mmol/L (21-32); GLUCOSE,RANDOM 255 mg/dL (74-106); MAGNESIUM 2.2 mg/dL (1.8-2.4)
[2022-09-03 12:30] LABS: CREATININE 5.3 mg/dL (0.55-1.3); PHOSPHOROUS 5.2 mg/dL (2.5-4.9); SGOT/AST 28 U/L (15-37); SGPT/ALT 22 U/L (13-61)
[2022-09-03 12:31] LABS: BILIRUBIN,TOTAL 0.7 mg/dL (0.2-1)
[2022-09-03 12:33] LABS: ALK PHOS 79 U/L (45-117); CALCIUM 6.2 mg/dL (8.5-10.1)
[2022-09-03] MEDS ORDERED: SODIUM CHLORIDE 1,000 ML IV SCH (15:00)
[2022-09-03] MEDS: WARFARIN NA 5 MG TABLET PO SCH (19:53)
[2022-09-03] MEDS: ATORVASTATIN CA 40 MG TABLET (FP) PO SCH (21:43)
[2022-09-03] MEDS: CHLORHEXIDINE GLUCONATE 4% CLEANSER FOR DECOLONIZATION TP SCH (21:43)
[2022-09-03] MEDS: INSULIN SLIDING SCALE (NOVOLOG) 1 VIAL SQ SCH (21:48)
[2022-09-03] MEDS ORDERED: WARFARIN NA 5 MG TABLET PO SCH (22:00)
[2022-09-04] MEDS: hydrALAZINE HCL 50 MG TABLET (FP) PO SCH ×3 (05:51→23:09)
[2022-09-04] MEDS: INSULIN SLIDING SCALE (NOVOLOG) 1 VIAL SQ SCH ×4 (06:13→23:56)
[2022-09-04 07:43] LABS: BASO % 0.4 % (0-2.0); EOS % 1.5 % (0-4.5); HEMATOCRIT 22.1 % (35.4-49); HEMOGLOBIN 7.6 GM/dL (11.7-16.9); MCH 30.3 pg (25.7-33.7); MCHC 34.4 g/dl (32.0-35.9); MEAN CELL VOLUME 88.3 fl (80-96); MEAN PLT VOLUME 7.8 fl (7.5-11.1); MONO % 12.3 % (3.8-10.2); NEUT % 61.8 % (42.8-82.8); PLATELET COUNT 130 10^3/uL (134-434); RDW 13.5 % (11.9-15.9); WHITE BLOOD COUNT 5.2 K/mm3 (4.0-10.0)
[2022-09-04 07:45] LABS: INR 2.44 (0.83-1.09); PROTHROMBIN TIME (PATIENT) 28.1 SEC (9.7-13.0)
[2022-09-04 07:48] LABS: ACTIVATED PTT 29.7 SECONDS (25.2-36.5)
[2022-09-04 08:12] LABS: CHLORIDE 111 mmol/L (98-107); SODIUM 138 mmol/L (136-145)
[2022-09-04 08:18] LABS: ANION GAP 6 MMOL/L (8-16); BLOOD UREA NITROGEN 71.7 mg/dL (7-18); CO2 21 mmol/L (21-32); GLUCOSE,RANDOM 208 mg/dL (74-106); MAGNESIUM 2.2 mg/dL (1.8-2.4)
[2022-09-04 08:21] LABS: CREATININE 5.8 mg/dL (0.55-1.3); PHOSPHOROUS 4.8 mg/dL (2.5-4.9); SGOT/AST 14 U/L (15-37); SGPT/ALT 16 U/L (13-61)
[2022-09-04 08:22] LABS: BILIRUBIN,TOTAL 0.4 mg/dL (0.2-1); TOT PROT 5.2 g/dl (6.4-8.2)
[2022-09-04 08:23] LABS: ALK PHOS 67 U/L (45-117)
[2022-09-04] MEDS: MUPIROCIN 2% TOPICAL OINTMENT FOR DECOLONIZATION NS SCH (09:24)
[2022-09-04] MEDS: levETIRAcetam 500 MG TABLET (FP) PO SCH ×2 (09:24→23:09)
[2022-09-04] MEDS: CALCITRIOL 0.25 MCG CAPSULE (FP) PO SCH (10:05)
[2022-09-04] MEDS: CALCIUM (OYSTER SHELL) 500 MG TABLET (FP) PO SCH ×4 (10:05→23:53)
[2022-09-04] MEDS ORDERED: SODIUM CHLORIDE 1,000 ML IV SCH (13:15)
[2022-09-04] MEDS ORDERED: hydrALAZINE HCL 20 MG/ML VIAL IVPUSH PRN (16:02)
[2022-09-04] MEDS ORDERED: WARFARIN SODIUM 5 MG PO SCH (16:02)
[2022-09-04] MEDS: WARFARIN NA 5 MG TABLET PO SCH (18:02)
[2022-09-04 18:31] LABS: EPI CELLS 9 /uL (0-25.1); HYALINE CASTS 1 /uL (0-3.1); PH,URINE 5.5 (5.0-8.0); URINE APPEARANCE CLEAR; URINE BACTERIA 8 /uL (0-1359); URINE BILIRUBIN NEGATIVE (NEGATIVE); URINE COLOR YELLOW; URINE GLUCOSE (UA) 3+ (NEGATIVE); URINE KETONE NEGATIVE (NEGATIVE); URINE LEUK ESTERASE NEGATIVE (NEGATIVE); URINE NITRITE NEGATIVE (NEGATIVE); URINE PROTEIN 4+ (NEGATIVE); URINE RBC 23 /uL (0-23.9); URINE UROBILINOGEN 0.2 mg/dL (0.2-1.0); URINE WBC 12 /uL (0-25.8)
[2022-09-04 18:48] LABS: CHLORIDE 114 mmol/L (98-107); SODIUM 143 mmol/L (136-145)
[2022-09-04 18:50] LABS: ANION GAP 7 MMOL/L (8-16); BLOOD UREA NITROGEN 77.9 mg/dL (7-18); CO2 23 mmol/L (21-32); GLUCOSE,RANDOM 228 mg/dL (74-106)
[2022-09-04] MEDS ORDERED: CHLORHEXIDINE GLUCONATE 4% CLEANSER FOR DECOLONIZATION TP SCH (22:00)
[2022-09-04] MEDS ORDERED: ATORVASTATIN CA 80 MG TABLET (FP) PO SCH (22:00)
[2022-09-04] MEDS ORDERED: MUPIROCIN 2% TOPICAL OINTMENT FOR DECOLONIZATION NS SCH (22:00)
[2022-09-04] MEDS: INSULIN (LEVEMIR) 100 UNITS/ML UNITS SQ SCH (23:10)
[2022-09-05] MEDS: hydrALAZINE HCL 50 MG TABLET (FP) PO SCH ×2 (07:21→15:27)
[2022-09-05] MEDS ORDERED: SODIUM CHLORIDE 1,000 ML IV SCH (07:30)
[2022-09-05] MEDS: INSULIN SLIDING SCALE (NOVOLOG) 1 VIAL SQ SCH ×2 (07:35→12:56)
[2022-09-05 08:03] LABS: INR 1.73 (0.83-1.09)
[2022-09-05 08:19] LABS: CHLORIDE 115 mmol/L (98-107); SODIUM 143 mmol/L (136-145)
[2022-09-05 08:21] LABS: ANION GAP 8 MMOL/L (8-16); BLOOD UREA NITROGEN 79.7 mg/dL (7-18); CO2 21 mmol/L (21-32); GLUCOSE,RANDOM 147 mg/dL (74-106); MAGNESIUM 2.3 mg/dL (1.8-2.4)
[2022-09-05 08:24] LABS: PHOSPHOROUS 5.1 mg/dL (2.5-4.9)
[2022-09-05 08:37] LABS: HEMATOCRIT 21.9 % (35.4-49); HEMOGLOBIN 7.7 GM/dL (11.7-16.9); MCH 30.9 pg (25.7-33.7); MCHC 35.2 g/dl (32.0-35.9); MEAN CELL VOLUME 87.7 fl (80-96); MEAN PLT VOLUME 7.7 fl (7.5-11.1); PLATELET COUNT 139 10^3/uL (134-434); RDW 13.4 % (11.9-15.9); WHITE BLOOD COUNT 4.4 K/mm3 (4.0-10.0)
[2022-09-05 08:57] LABS: CALCIUM 6.7 mg/dL (8.5-10.1)
[2022-09-05] MEDS: levETIRAcetam 500 MG TABLET (FP) PO SCH (10:41)
[2022-09-05] MEDS: CALCITRIOL 0.25 MCG CAPSULE (FP) PO SCH (10:41)
[2022-09-05] MEDS: INSULIN (LEVEMIR) 100 UNITS/ML UNITS SQ SCH (10:41)
[2022-09-05 16:24] VITALS: BP 138/70; PULSE 87; RESP 18; TEMP 98.5
== END 2022-09-05 16:00 | disposition home or self-care (01) | DRG 182 ==
LOC: JOR 13:05 → JERBED 13:53 → JICU 18:22 → J7W 09-04 15:57
PROVIDERS: ADMIT Internal Medicine; ATTEND Internal Medicine
PROC: 3E03317 Introduction of Other Thrombolytic into Peripheral Vein, Percutaneous Approach (ICD-10-PCS; 2022-09-02)
PROC: B51BZZZ Fluoroscopy of Right Lower Extremity Veins (ICD-10-PCS; 2022-09-02)
PROC: 067C3DZ Dilation of Right Common Iliac Vein with Intraluminal Device, Percutaneous Approach (ICD-10-PCS; principal; 2022-09-02 15:00)
DX: I82.401 Acute embolism and thrombosis of unspecified deep veins of right lower extremity (principal); N17.9 Acute kidney failure, unspecified; I13.0 Hypertensive heart and chronic kidney disease with heart failure and stage 1 through stage 4 chronic kidney disease, or unspecified chronic kidney disease; D68.59 Other primary thrombophilia; N18.4 Chronic kidney disease, stage 4 (severe); E10.22 Type 1 diabetes mellitus with diabetic chronic kidney disease; I50.9 Heart failure, unspecified; G40.909 Epilepsy, unspecified, not intractable, without status epilepticus; D64.9 Anemia, unspecified; E83.51 Hypocalcemia
CPT/HCPCS: 0241U-QW; 36415; 71046-TC-FY; 76000-TC-FY; 80048; 80053; 81003; 82570; 82962; 83735; 84100; 84156; 85025; 85027; 85610; 85730; 86850; 86900; 86901; 86922; 93005; 93010; 94760; 99285-25; C1725; C1769; J1644

== ENCOUNTER 2022-09-14 09:33 | Inpatient (IN) | payer OTHER ==
[2022-09-14 09:55] VITALS: BMI 30.4
[2022-09-14 12:32] LABS: INR 1.24 (0.83-1.09); PROTHROMBIN TIME (PATIENT) 14.4 SEC (9.7-13.0)
[2022-09-14 12:33] LABS: BASO % 0.8 % (0-2.0); EOS % 1.5 % (0-4.5); HEMATOCRIT 25.4 % (35.4-49); HEMOGLOBIN 8.9 GM/dL (11.7-16.9); LYMPH % 22.2 % (8-40); MCH 31.3 pg (25.7-33.7); MEAN CELL VOLUME 89.3 fl (80-96); MEAN PLT VOLUME 7.8 fl (7.5-11.1); MONO % 9.5 % (3.8-10.2); PLATELET COUNT 218 10^3/uL (134-434); RBC 2.84 M/mm3 (4.00-5.60); RDW 13.7 % (11.9-15.9); WHITE BLOOD COUNT 4.4 K/mm3 (4.0-10.0)
[2022-09-14 12:45] LABS: CHLORIDE 116 mmol/L (98-107); SODIUM 143 mmol/L (136-145)
[2022-09-14 12:47] LABS: GLUCOSE,RANDOM 155 mg/dL (74-106)
[2022-09-14 12:48] LABS: ANION GAP 3 MMOL/L (8-16); BLOOD UREA NITROGEN 69.9 mg/dL (7-18); CO2 24 mmol/L (21-32)
[2022-09-14 12:51] LABS: CREATININE 4.3 mg/dL (0.55-1.3); SGOT/AST 20 U/L (15-37); SGPT/ALT 22 U/L (13-61)
[2022-09-14 12:53] LABS: BILIRUBIN,TOTAL 0.3 mg/dL (0.2-1); TOT PROT 6.3 g/dl (6.4-8.2)
[2022-09-14 12:54] LABS: ALK PHOS 87 U/L (45-117)
[2022-09-14 12:59] LABS: ALBUMIN 2.6 g/dl (3.4-5.0); CALCIUM 6.3 mg/dL (8.5-10.1)
[2022-09-14] MEDS: SODIUM CHLORIDE 1,000 ML IV SCH (13:05)
[2022-09-14] MEDS ORDERED: HEPARIN NA (PORCINE) 5,000 UNITS/ML 1ML VIAL ONE ×2 (14:14→14:15)
[2022-09-14] MEDS ORDERED: LIDOCAINE HCL 1%, 10 MG/ML (10ML VIAL) MDV ONE (14:14)
[2022-09-14] MEDS ORDERED: HEPARIN NA (PORCINE) 5,000 UNITS/ML 1ML VIAL IVPUSH ONE (16:01)
[2022-09-14] MEDS ORDERED: HEPARIN NA (PORCINE) 5,000 UNITS/ML 1ML VIAL IVPUSH PRN ×2 (16:01)
[2022-09-14] MEDS ORDERED: HEPARIN INFUSION - 25,000 UNITS/500 ML INFUS.BAG IVPB SCH (16:15)
[2022-09-14] MEDS ORDERED: ATORVASTATIN CA 80 MG TABLET (FP) PO SCH (22:00)
[2022-09-15] MEDS: levETIRAcetam 500 MG TABLET (FP) PO SCH ×3 (00:30→21:12)
[2022-09-15] MEDS: hydrALAZINE HCL 25 MG TABLET (FP) PO SCH ×5 (00:30→21:11)
[2022-09-15 07:23] LABS: HEMATOCRIT 22.7 % (35.4-49); HEMOGLOBIN 7.8 GM/dL (11.7-16.9); MCH 30.9 pg (25.7-33.7); MCHC 34.5 g/dl (32.0-35.9); MEAN CELL VOLUME 89.6 fl (80-96); MEAN PLT VOLUME 7.8 fl (7.5-11.1); PLATELET COUNT 200 10^3/uL (134-434); RBC 2.53 M/mm3 (4.00-5.60); RDW 13.6 % (11.9-15.9); WHITE BLOOD COUNT 5.3 K/mm3 (4.0-10.0)
[2022-09-15 07:44] LABS: CHLORIDE 122 mmol/L (98-107); SODIUM 147 mmol/L (136-145)
[2022-09-15 07:46] LABS: ANION GAP 4 MMOL/L (8-16); BLOOD UREA NITROGEN 61.3 mg/dL (7-18); CO2 21 mmol/L (21-32); GLUCOSE,RANDOM 164 mg/dL (74-106)
[2022-09-15] MEDS: CALCITRIOL 0.25 MCG CAPSULE (FP) PO SCH (09:54)
[2022-09-15] MEDS ORDERED: CALCITRIOL 0.25 MCG CAPSULE (FP) PO SCH (10:00)
[2022-09-15] MEDS ORDERED: CALCIUM GLUCONATE 10% - 1,000 MG/10 ML VIAL IVPB ONE ×2 (10:37→18:15)
[2022-09-15] MEDS: SODIUM CHLORIDE 1,000 ML IV SCH (11:50)
[2022-09-15 12:18] LABS: MAGNESIUM 1.7 mg/dL (1.8-2.4)
[2022-09-15] MEDS ORDERED: LIDOCAINE HCL 1%, 10 MG/ML (10ML VIAL) MDV ONE (12:18)
[2022-09-15] MEDS ORDERED: HEPARIN NA (PORCINE) 5,000 UNITS/ML 1ML VIAL ONE (12:18)
[2022-09-15] MEDS ORDERED: DEXMEDETOMIDINE HCL 200 MCG/2 ML IVPB ONE (13:38)
[2022-09-15] MEDS ORDERED: MIDAZOLAM HCL 2 MG/2 ML SINGLE DOSE VIAL ONE (13:39)
[2022-09-15] MEDS ORDERED: ceFAZolin SODIUM 1 GM VIAL IVPB ONE (14:05)
[2022-09-15] MEDS ORDERED: LIDOCAINE HCL 1%, 10 MG/ML (20ML VIAL) NR ONE ×2 (14:10)
[2022-09-15] MEDS ORDERED: HEPARIN NA (PORCINE) 5,000 UNITS/ML 1ML VIAL SQ ONE ×2 (14:17)
[2022-09-15] MEDS ORDERED: ALTEPLASE (CATHFLO) 2 MG/2 ML VIAL CVP ONE (14:33)
[2022-09-15] MEDS ORDERED: BENZOIN/ALOE VERA/STORAX/TOLU 58 ML BOTTLE ONE (15:13)
[2022-09-15] MEDS ORDERED: HEPARIN NA (PORCINE) 5,000 UNITS/ML 1ML VIAL IVPUSH PRN ×2 (15:43)
[2022-09-15] MEDS ORDERED: HEPARIN - 25,000 UNIT in SODIUM CHLORIDE 495 ML IV SCH (15:45)
[2022-09-15] MEDS ORDERED: ALTEPLASE 50MG 25 MG in SODIUM CHLORIDE 225 ML IVPB ONE (16:00)
[2022-09-15] MEDS: INSULIN SLIDING SCALE (NOVOLOG) 1 VIAL SQ SCH (16:33)
[2022-09-15 16:48] LABS: CALCIUM 6.3 mg/dL (8.5-10.1)
[2022-09-15 17:13] LABS: ALBUMIN 2.1 g/dl (3.4-5.0)
[2022-09-15] MEDS ORDERED: CALCIUM CARBONATE 650 MG TABLET PO ONE ×2 (18:27→18:45)
[2022-09-15 18:40] LABS: HEMATOCRIT 23.2 % (35.4-49); HEMOGLOBIN 7.7 GM/dL (11.7-16.9); MCH 30.2 pg (25.7-33.7); MCHC 33.3 g/dl (32.0-35.9); MEAN CELL VOLUME 90.4 fl (80-96); MEAN PLT VOLUME 7.6 fl (7.5-11.1); PLATELET COUNT 196 10^3/uL (134-434); RBC 2.57 M/mm3 (4.00-5.60); RDW 14.1 % (11.9-15.9); WHITE BLOOD COUNT 4.4 K/mm3 (4.0-10.0)
[2022-09-15 18:46] LABS: INR 1.48 (0.83-1.09); PROTHROMBIN TIME (PATIENT) 17.1 SEC (9.7-13.0)
[2022-09-15 18:49] LABS: ACTIVATED PTT 49.2 SECONDS (25.2-36.5)
[2022-09-15] MEDS: MUPIROCIN 2% TOPICAL OINTMENT FOR DECOLONIZATION NS SCH (21:12)
[2022-09-15] MEDS ORDERED: TIMOLOL 0.5% OPHTHALMIC SOL 5 ML BOTTLE OD SCH (22:00)
[2022-09-15] MEDS ORDERED: BRIMONIDINE TARTRATE 0.2% OPHTHALMIC 5 ML BOTTLE OD SCH (22:00)
[2022-09-15] MEDS ORDERED: ATORVASTATIN CA 80 MG TABLET (FP) PO SCH (22:00)
[2022-09-15] MEDS ORDERED: CHLORHEXIDINE GLUCONATE 4% CLEANSER FOR DECOLONIZATION TP SCH (22:00)
[2022-09-16] MEDS: INSULIN SLIDING SCALE (NOVOLOG) 1 VIAL SQ SCH ×2 (06:27→10:27)
[2022-09-16] MEDS: hydrALAZINE HCL 25 MG TABLET (FP) PO SCH ×2 (06:27→14:03)
[2022-09-16] MEDS ORDERED: CHOLECALCIFEROL (VIT D3) 1,000 UNIT (25 MCG) TABLET PO SCH ×2 (08:00)
[2022-09-16] MEDS ORDERED: CALCIUM CARBONATE 650 MG TABLET PO SCH ×2 (08:00)
[2022-09-16] MEDS ORDERED: ALTEPLASE 50MG 25 MG in SODIUM CHLORIDE 225 ML IVPB ONE (08:15)
[2022-09-16] MEDS: levETIRAcetam 500 MG TABLET (FP) PO SCH (09:03)
[2022-09-16] MEDS: CALCITRIOL 0.25 MCG CAPSULE (FP) PO SCH (09:03)
[2022-09-16] MEDS: MUPIROCIN 2% TOPICAL OINTMENT FOR DECOLONIZATION NS SCH (09:03)
[2022-09-16] MEDS ORDERED: TIMOLOL 0.5% OPHTHALMIC SOL 5 ML BOTTLE OD SCH (10:00)
[2022-09-16] MEDS ORDERED: ISOSORBIDE MONONITRATE 30 MG TAB.SR.24H (FP) PO SCH (10:00)
[2022-09-16] MEDS ORDERED: BRIMONIDINE TARTRATE 0.2% OPHTHALMIC 5 ML BOTTLE OD SCH (10:00)
[2022-09-16] MEDS ORDERED: FUROSEMIDE 40 MG TABLET (FP) PO SCH (10:00)
[2022-09-16] MEDS ORDERED: SODIUM ZIRCONIUM CYCLOSILICATE (LOKELMA) 5 GM PACKET PO SCH (10:00)
[2022-09-16] MEDS ORDERED: PATIENT'S OWN MEDICATION (NON-FORMULARY) (Brimonidine Tartrate/Timolol [Brimonidine-Timolo OD SCH (10:00)
[2022-09-16] MEDS ORDERED: MIDAZOLAM HCL 2 MG/2 ML SINGLE DOSE VIAL ONE (11:16)
[2022-09-16] MEDS ORDERED: ceFAZolin SODIUM 1 GM VIAL IVPB ONE (12:00)
[2022-09-16] MEDS ORDERED: ceFAZolin SODIUM 1 GM VIAL ONE (12:05)
[2022-09-16 14:46] VITALS: BP 166/106; PULSE 94; RESP 18; TEMP 98.7
== END 2022-09-16 15:07 | disposition home or self-care (01) | DRG 181 ==
LOC: JER 09:33 → JERBED 12:19 → JICU 14:11
PROVIDERS: ADMIT Internal Medicine; ATTEND Internal Medicine
PROC: 047M3ZZ Dilation of Right Popliteal Artery, Percutaneous Approach (ICD-10-PCS; 2022-09-15)
PROC: 047K3ZZ Dilation of Right Femoral Artery, Percutaneous Approach (ICD-10-PCS; 2022-09-15)
PROC: B50BYZZ Plain Radiography of Right Lower Extremity Veins using Other Contrast (ICD-10-PCS; 2022-09-15)
PROC: 3E03317 Introduction of Other Thrombolytic into Peripheral Vein, Percutaneous Approach (ICD-10-PCS; 2022-09-15)
PROC: 067M3ZZ Dilation of Right Femoral Vein, Percutaneous Approach (ICD-10-PCS; principal; 2022-09-15 13:30)
PROC: B50BYZZ Plain Radiography of Right Lower Extremity Veins using Other Contrast (ICD-10-PCS; 2022-09-16)
PROC: 3E03317 Introduction of Other Thrombolytic into Peripheral Vein, Percutaneous Approach (ICD-10-PCS; 2022-09-16)
PROC: 067F3ZZ Dilation of Right External Iliac Vein, Percutaneous Approach (ICD-10-PCS; 2022-09-16)
PROC: 067M3ZZ Dilation of Right Femoral Vein, Percutaneous Approach (ICD-10-PCS; 2022-09-16)
DX: I82.411 Acute embolism and thrombosis of right femoral vein (principal); I82.431 Acute embolism and thrombosis of right popliteal vein; I13.0 Hypertensive heart and chronic kidney disease with heart failure and stage 1 through stage 4 chronic kidney disease, or unspecified chronic kidney disease; E11.22 Type 2 diabetes mellitus with diabetic chronic kidney disease; N18.9 Chronic kidney disease, unspecified; I50.22 Chronic systolic (congestive) heart failure; E78.5 Hyperlipidemia, unspecified; J45.909 Unspecified asthma, uncomplicated; D68.59 Other primary thrombophilia; R80.9 Proteinuria, unspecified; D64.9 Anemia, unspecified
CPT/HCPCS: 36415; 76000-TC-FY; 80048; 80053; 82040; 82310; 82962; 83735; 84100; 85025; 85027; 85610; 85730; 86850; 86900; 86901; 93005; 93010; 99285-25; C1725; C1769; C9803-CS; J1644; J2997; U0003; U0005

== ENCOUNTER 2022-11-11 14:50 | Inpatient (IN) | payer OTHER ==
[2022-11-11 15:00] VITALS: BMI 29.6
[2022-11-11] MEDS ORDERED: FUROSEMIDE 40 MG/4 ML INJECTABLE VIAL IVPUSH ONE ×2 (16:13→16:26)
[2022-11-11] MEDS ORDERED: FUROSEMIDE 40 MG/4 ML INJECTABLE VIAL ONE ×2 (16:19→16:51)
[2022-11-11 16:29] LABS: BASO % 0.5 % (0-2.0); EOS % 0.8 % (0-4.5); HEMATOCRIT 26.8 % (35.4-49); HEMOGLOBIN 8.9 GM/dL (11.7-16.9); MCH 30.6 pg (25.7-33.7); MCHC 33.2 g/dl (32.0-35.9); MEAN PLT VOLUME 7.9 fl (7.5-11.1); NEUT % 64.7 % (42.8-82.8); PLATELET COUNT 152 10^3/uL (134-434); RBC 2.91 M/mm3 (4.00-5.60); RDW 16.1 % (11.9-15.9); WHITE BLOOD COUNT 4.4 K/mm3 (4.0-10.0)
[2022-11-11 16:39] LABS: INR 1.04 (0.83-1.09); PROTHROMBIN TIME (PATIENT) 12.1 SEC (9.7-13.0)
[2022-11-11 16:40] LABS: CHLORIDE 120 mmol/L (98-107); SODIUM 147 mmol/L (136-145)
[2022-11-11 16:41] LABS: CALCIUM 8.4 mg/dL (8.5-10.1)
[2022-11-11 16:42] LABS: ACTIVATED PTT 29.3 SECONDS (25.2-36.5); ALBUMIN 2.5 g/dl (3.4-5.0); BLOOD UREA NITROGEN 59.4 mg/dL (7-18); CO2 22 mmol/L (21-32); GLUCOSE,RANDOM 92 mg/dL (74-106)
[2022-11-11 16:45] LABS: CREATININE 4.9 mg/dL (0.55-1.3); SGOT/AST 67 U/L (15-37); SGPT/ALT 87 U/L (13-61)
[2022-11-11 16:47] LABS: ANION GAP 6 MMOL/L (8-16); BILIRUBIN,TOTAL 0.3 mg/dL (0.2-1); POTASSIUM 6.1 mmol/L (3.5-5.1); TOT PROT 5.6 g/dl (6.4-8.2)
[2022-11-11 16:48] LABS: ALK PHOS 207 U/L (45-117)
[2022-11-11] MEDS ORDERED: INSULIN REGULAR HUMAN 100 UNITS/ML *VIAL IVPUSH ONE (16:49)
[2022-11-11] MEDS ORDERED: CALCIUM GLUCONATE 10% - 1,000 MG/10 ML VIAL IVPB ONE (16:50)
[2022-11-11] MEDS ORDERED: DEXTROSE 50%-WATER - 25 GM/50 ML VIAL IVPUSH ONE (16:50)
[2022-11-11] MEDS ORDERED: SODIUM ZIRCONIUM CYCLOSILICATE (LOKELMA) 5 GM PACKET PO ONE (18:08)
[2022-11-11] MEDS ORDERED: DEXTROSE 50%-WATER 25 GM/50 ML DISP.SYRIN ONE (18:09)
[2022-11-11] MEDS ORDERED: SODIUM ZIRCONIUM CYCLOSILICATE (LOKELMA) 5 GM PACKET ONE (18:09)
[2022-11-11] MEDS ORDERED: CALCIUM GLUCONATE 10% - 1,000 MG/10 ML VIAL ONE (18:09)
[2022-11-11] MEDS ORDERED: DEXTROSE 50%-WATER 25 GM/50 ML DISP.SYRIN IVPUSH PRN (19:19)
[2022-11-11 19:31] LABS: CALCIUM 8.5 mg/dL (8.5-10.1)
[2022-11-11 19:32] LABS: BLOOD UREA NITROGEN 60.5 mg/dL (7-18)
[2022-11-11 19:35] LABS: CREATININE 4.8 mg/dL (0.55-1.3)
[2022-11-11] MEDS: CARVEDILOL 25 MG TABLET (FP) PO SCH (21:30)
[2022-11-11] MEDS: ATORVASTATIN CA 80 MG TABLET (FP) PO SCH (21:31)
[2022-11-11] MEDS: levETIRAcetam 500 MG TABLET (FP) PO SCH (21:31)
[2022-11-11] MEDS: ENOXAPARIN NA (PORCINE) 80 MG/0.8 ML DISP.SYRIN SQ SCH (21:31)
[2022-11-11] MEDS: BRIMONIDINE TARTRATE 0.2% OPHTHALMIC 5 ML BOTTLE OD SCH (21:43)
[2022-11-11] MEDS ORDERED: INSULIN (NOVOLOG) ASPART 100 UNITS/ML 10ML VIAL SQ ONE (22:02)
[2022-11-11] MEDS ORDERED: DEXTROSE 50%-WATER 25 GM/50 ML DISP.SYRIN IVPUSH ONE (22:03)
[2022-11-11] MEDS: INSULIN SLIDING SCALE (NOVOLOG) 1 VIAL SQ SCH (23:31)
[2022-11-12 02:25] LABS: CHLORIDE 120 mmol/L (98-107); POTASSIUM 5.4 mmol/L (3.5-5.1); SODIUM 149 mmol/L (136-145)
[2022-11-12 02:27] LABS: ANION GAP 7 MMOL/L (8-16); BLOOD UREA NITROGEN 60.9 mg/dL (7-18); CALCIUM 8.2 mg/dL (8.5-10.1); CO2 22 mmol/L (21-32)
[2022-11-12 02:31] LABS: CREATININE 5.1 mg/dL (0.55-1.3)
[2022-11-12 02:32] LABS: GLUCOSE,RANDOM 43 mg/dL (74-106)
[2022-11-12] MEDS: TIMOLOL 0.5% OPHTHALMIC SOL 5 ML BOTTLE OD SCH ×3 (06:34→23:39)
[2022-11-12] MEDS: INSULIN SLIDING SCALE (NOVOLOG) 1 VIAL SQ SCH ×4 (06:34→23:37)
[2022-11-12 07:32] LABS: BASO % 0.6 % (0-2.0); HEMATOCRIT 25.2 % (35.4-49); HEMOGLOBIN 8.4 GM/dL (11.7-16.9); LYMPH % 25.3 % (8-40); MCH 31.2 pg (25.7-33.7); MCHC 33.4 g/dl (32.0-35.9); MEAN CELL VOLUME 93.4 fl (80-96); MONO % 7.8 % (3.8-10.2); NEUT % 65.3 % (42.8-82.8); PLATELET COUNT 142 10^3/uL (134-434); RDW 16.1 % (11.9-15.9); WHITE BLOOD COUNT 3.2 K/mm3 (4.0-10.0)
[2022-11-12 07:49] LABS: POTASSIUM 5.8 mmol/L (3.5-5.1)
[2022-11-12 07:57] LABS: CALCIUM 7.9 mg/dL (8.5-10.1)
[2022-11-12 07:58] LABS: BLOOD UREA NITROGEN 60.5 mg/dL (7-18); MAGNESIUM 1.8 mg/dL (1.8-2.4)
[2022-11-12 08:01] LABS: CREATININE 4.9 mg/dL (0.55-1.3); PHOSPHOROUS 5.3 mg/dL (2.5-4.9)
[2022-11-12 08:02] LABS: BILIRUBIN,TOTAL 0.3 mg/dL (0.2-1)
[2022-11-12] MEDS ORDERED: hydrALAZINE HCL 20 MG/ML VIAL IVPUSH ONE (08:45)
[2022-11-12] MEDS ORDERED: FUROSEMIDE 40 MG/4 ML INJECTABLE VIAL IVPUSH SCH ×3 (10:00→22:00)
[2022-11-12] MEDS: ENOXAPARIN NA (PORCINE) 80 MG/0.8 ML DISP.SYRIN SQ SCH ×2 (10:00→21:53)
[2022-11-12] MEDS ORDERED: PATIENT'S OWN MEDICATION (NON-FORMULARY) (Brimonidine Tartrate/Timolol [Brimonidine-Timolo OD SCH (10:00)
[2022-11-12] MEDS ORDERED: FUROSEMIDE 40 MG/4 ML INJECTABLE VIAL IVPUSH ONE ×2 (10:23→11:00)
[2022-11-12] MEDS: levETIRAcetam 500 MG TABLET (FP) PO SCH ×2 (10:33→21:31)
[2022-11-12] MEDS: CARVEDILOL 25 MG TABLET (FP) PO SCH ×2 (10:33→21:26)
[2022-11-12] MEDS: ISOSORBIDE MONONITRATE 60 MG TAB.SR.24H (FP) PO SCH (10:33)
[2022-11-12] MEDS: CALCITRIOL 0.25 MCG CAPSULE (FP) PO SCH (10:33)
[2022-11-12] MEDS: BRIMONIDINE TARTRATE 0.2% OPHTHALMIC 5 ML BOTTLE OD SCH ×2 (10:34→22:00)
[2022-11-12 14:33] VITALS: RESP 18
[2022-11-12] MEDS: SODIUM ZIRCONIUM CYCLOSILICATE (LOKELMA) 5 GM PACKET PO SCH (15:00)
[2022-11-12] MEDS ORDERED: SODIUM ZIRCONIUM CYCLOSILICATE (LOKELMA) 5 GM PACKET PO ONE ×2 (16:50→22:03)
[2022-11-12] MEDS ORDERED: INSULIN (NOVOLOG) ASPART 100 UNITS/ML 10ML VIAL ONE (17:52)
[2022-11-12] MEDS: ATORVASTATIN CA 80 MG TABLET (FP) PO SCH (21:26)
[2022-11-13] MEDS ORDERED: FUROSEMIDE 40 MG/4 ML INJECTABLE VIAL IVPUSH SCH (06:00)
[2022-11-13] MEDS: INSULIN SLIDING SCALE (NOVOLOG) 1 VIAL SQ SCH ×2 (06:57→11:23)
[2022-11-13 07:38] VITALS: PULSE 83
[2022-11-13 07:51] LABS: BASO % 0.6 % (0-2.0); EOS % 1.6 % (0-4.5); HEMATOCRIT 26.6 % (35.4-49); HEMOGLOBIN 8.7 GM/dL (11.7-16.9); LYMPH % 33.1 % (8-40); MCH 30.4 pg (25.7-33.7); MCHC 32.8 g/dl (32.0-35.9); MEAN CELL VOLUME 92.7 fl (80-96); MEAN PLT VOLUME 8.5 fl (7.5-11.1); MONO % 12.1 % (3.8-10.2); NEUT % 52.6 % (42.8-82.8); PLATELET COUNT 164 10^3/uL (134-434); RBC 2.87 M/mm3 (4.00-5.60); RDW 15.9 % (11.9-15.9); WHITE BLOOD COUNT 2.9 K/mm3 (4.0-10.0)
[2022-11-13 08:11] LABS: POTASSIUM 5.1 mmol/L (3.5-5.1)
[2022-11-13 08:17] LABS: CALCIUM 8.2 mg/dL (8.5-10.1)
[2022-11-13 08:18] LABS: BLOOD UREA NITROGEN 58.2 mg/dL (7-18); MAGNESIUM 1.7 mg/dL (1.8-2.4)
[2022-11-13 08:21] LABS: CREATININE 4.8 mg/dL (0.55-1.3); PHOSPHOROUS 5.1 mg/dL (2.5-4.9)
[2022-11-13 08:22] LABS: BILIRUBIN,TOTAL 0.4 mg/dL (0.2-1)
[2022-11-13 09:35] VITALS: BP 156/87; TEMP 98.9
[2022-11-13] MEDS: CALCITRIOL 0.25 MCG CAPSULE (FP) PO SCH (09:36)
[2022-11-13] MEDS: levETIRAcetam 500 MG TABLET (FP) PO SCH (09:36)
[2022-11-13] MEDS: ENOXAPARIN NA (PORCINE) 80 MG/0.8 ML DISP.SYRIN SQ SCH (09:36)
[2022-11-13] MEDS: ISOSORBIDE MONONITRATE 60 MG TAB.SR.24H (FP) PO SCH (09:36)
[2022-11-13] MEDS: CARVEDILOL 25 MG TABLET (FP) PO SCH (09:36)
[2022-11-13] MEDS: SODIUM ZIRCONIUM CYCLOSILICATE (LOKELMA) 5 GM PACKET PO SCH (09:37)
[2022-11-13] MEDS: BRIMONIDINE TARTRATE 0.2% OPHTHALMIC 5 ML BOTTLE OD SCH (09:37)
[2022-11-13] MEDS: TIMOLOL 0.5% OPHTHALMIC SOL 5 ML BOTTLE OD SCH (11:23)
== END 2022-11-13 13:19 | disposition home or self-care (01) | DRG 194 ==
LOC: JER 14:50 → JERBED 16:26 → J4W 19:46
PROVIDERS: ADMIT Internal Medicine; ATTEND Internal Medicine
DX: I13.0 Hypertensive heart and chronic kidney disease with heart failure and stage 1 through stage 4 chronic kidney disease, or unspecified chronic kidney disease (principal); N17.9 Acute kidney failure, unspecified; D68.59 Other primary thrombophilia; E11.22 Type 2 diabetes mellitus with diabetic chronic kidney disease; E87.5 Hyperkalemia; N18.4 Chronic kidney disease, stage 4 (severe); I50.43 Acute on chronic combined systolic (congestive) and diastolic (congestive) heart failure; G40.909 Epilepsy, unspecified, not intractable, without status epilepticus; Z86.718 Personal history of other venous thrombosis and embolism; Z79.01 Long term (current) use of anticoagulants; Z86.711 Personal history of pulmonary embolism; Z79.4 Long term (current) use of insulin; D64.9 Anemia, unspecified
CPT/HCPCS: 0241U-QW; 36415; 71046-TC-FY; 80048; 80053; 82962; 83735; 83880; 84100; 84484; 85025; 85610; 85730; 93005; 93010; 93306-TC; 93308; 99291

== ENCOUNTER 2023-01-12 07:43 | Inpatient (IN) | payer OTHER ==
[2023-01-12 09:19] LABS: BASO % 0.4 % (0-2.0); EOS % 1.1 % (0-4.5); HEMATOCRIT 25.8 % (35.4-49); HEMOGLOBIN 8.8 GM/dL (11.7-16.9); LYMPH % 19.6 % (8-40); MCH 31.7 pg (25.7-33.7); MCHC 34.1 g/dl (32.0-35.9); MEAN CELL VOLUME 93.1 fl (80-96); MEAN PLT VOLUME 8.1 fl (7.5-11.1); MONO % 9.1 % (3.8-10.2); NEUT % 69.8 % (42.8-82.8); PLATELET COUNT 147 10^3/uL (134-434); RBC 2.77 M/mm3 (4.00-5.60); RDW 15.6 % (11.9-15.9); WHITE BLOOD COUNT 3.8 K/mm3 (4.0-10.0)
[2023-01-12 09:23] LABS: INR 1.1 (0.83-1.09); PROTHROMBIN TIME (PATIENT) 12.8 SEC (9.7-13.0)
[2023-01-12 09:36] LABS: CHLORIDE 115 mmol/L (98-107); POTASSIUM 5.3 mmol/L (3.5-5.1); SODIUM 142 mmol/L (136-145)
[2023-01-12 09:42] LABS: ALBUMIN 2.2 g/dl (3.4-5.0); ANION GAP 4 MMOL/L (8-16); BLOOD UREA NITROGEN 64.6 mg/dL (7-18); CALCIUM 7.2 mg/dL (8.5-10.1); CO2 24 mmol/L (21-32); GLUCOSE,RANDOM 271 mg/dL (74-106); MAGNESIUM 1.9 mg/dL (1.8-2.4)
[2023-01-12 09:45] LABS: CREATININE 5.2 mg/dL (0.55-1.3); SGOT/AST 35 U/L (15-37); SGPT/ALT 56 U/L (13-61)
[2023-01-12 09:47] LABS: BILIRUBIN,TOTAL 0.5 mg/dL (0.2-1); TOT PROT 5.1 g/dl (6.4-8.2)
[2023-01-12 09:48] LABS: ALK PHOS 132 U/L (45-117)
[2023-01-12] MEDS ORDERED: FUROSEMIDE 40 MG/4 ML INJECTABLE VIAL IVPUSH ONE (09:57)
[2023-01-12] MEDS ORDERED: FUROSEMIDE 40 MG/4 ML INJECTABLE VIAL ONE (10:05)
[2023-01-12 10:07] LABS: N-TERMINAL BNP > 35000.0 pg/ml (5-125)
[2023-01-12] MEDS: ENOXAPARIN NA (PORCINE) 80 MG/0.8 ML DISP.SYRIN SQ SCH ×2 (14:00→14:34)
[2023-01-12] MEDS: FUROSEMIDE 100 MG/10 ML INJECTABLE VIAL IVPB SCH ×2 (14:00→14:34)
[2023-01-12] MEDS: hydrALAZINE HCL 25 MG TABLET (FP) PO SCH ×2 (14:34→22:21)
[2023-01-12] MEDS ORDERED: INSULIN SLIDING SCALE (NOVOLOG) 1 VIAL SQ SCH (16:30)
[2023-01-12] MEDS: INSULIN SLIDING SCALE (NOVOLOG) 1 VIAL SQ SCH ×2 (16:52→22:22)
[2023-01-12] MEDS ORDERED: TIMOLOL 0.5% OPHTHALMIC SOL 5 ML BOTTLE OD SCH (22:00)
[2023-01-12] MEDS: BRIMONIDINE TARTRATE 0.2% OPHTHALMIC 5 ML BOTTLE OD SCH (22:21)
[2023-01-12] MEDS: CARVEDILOL 25 MG TABLET (FP) PO SCH (22:21)
[2023-01-12] MEDS: levETIRAcetam 500 MG TABLET (FP) PO SCH (22:21)
[2023-01-12] MEDS: ATORVASTATIN CA 80 MG TABLET (FP) PO SCH (22:21)
[2023-01-12] MEDS: TIMOLOL 0.5% OPHTHALMIC SOL 5 ML BOTTLE OD SCH (22:22)
[2023-01-13] MEDS: hydrALAZINE HCL 25 MG TABLET (FP) PO SCH ×2 (05:44→14:15)
[2023-01-13] MEDS: FUROSEMIDE 100 MG/10 ML INJECTABLE VIAL IVPB SCH (05:45)
[2023-01-13] MEDS: INSULIN SLIDING SCALE (NOVOLOG) 1 VIAL SQ SCH ×4 (06:10→17:08)
[2023-01-13 08:35] LABS: BASO % 0.6 % (0-2.0); EOS % 1.5 % (0-4.5); HEMATOCRIT 29.6 % (35.4-49); HEMOGLOBIN 9.8 GM/dL (11.7-16.9); LYMPH % 28.6 % (8-40); MCH 30.7 pg (25.7-33.7); MCHC 33.2 g/dl (32.0-35.9); MEAN CELL VOLUME 92.6 fl (80-96); MEAN PLT VOLUME 7.9 fl (7.5-11.1); MONO % 9.7 % (3.8-10.2); NEUT % 59.6 % (42.8-82.8); PLATELET COUNT 172 10^3/uL (134-434); RDW 15.7 % (11.9-15.9); WHITE BLOOD COUNT 3.4 K/mm3 (4.0-10.0)
[2023-01-13 08:57] LABS: POTASSIUM 5.1 mmol/L (3.5-5.1)
[2023-01-13 09:04] LABS: CALCIUM 7.8 mg/dL (8.5-10.1)
[2023-01-13 09:05] LABS: ALBUMIN 2.4 g/dl (3.4-5.0); BLOOD UREA NITROGEN 66.8 mg/dL (7-18)
[2023-01-13 09:07] LABS: CREATININE 5.2 mg/dL (0.55-1.3)
[2023-01-13 09:08] LABS: MAGNESIUM 1.9 mg/dL (1.8-2.4)
[2023-01-13 09:09] LABS: BILIRUBIN,TOTAL 0.5 mg/dL (0.2-1); TOT PROT 5.6 g/dl (6.4-8.2)
[2023-01-13] MEDS: BRIMONIDINE TARTRATE 0.2% OPHTHALMIC 5 ML BOTTLE OD SCH ×2 (09:46→21:26)
[2023-01-13] MEDS: levETIRAcetam 500 MG TABLET (FP) PO SCH ×2 (09:49→21:18)
[2023-01-13] MEDS: CALCITRIOL 0.25 MCG CAPSULE (FP) PO SCH (09:49)
[2023-01-13] MEDS: CARVEDILOL 25 MG TABLET (FP) PO SCH ×2 (09:49→21:18)
[2023-01-13] MEDS: SODIUM ZIRCONIUM CYCLOSILICATE (LOKELMA) 5 GM PACKET PO SCH (09:50)
[2023-01-13] MEDS: ENOXAPARIN NA (PORCINE) 80 MG/0.8 ML DISP.SYRIN SQ SCH (09:50)
[2023-01-13] MEDS: TIMOLOL 0.5% OPHTHALMIC SOL 5 ML BOTTLE OD SCH ×2 (09:51→21:26)
[2023-01-13] MEDS ORDERED: ISOSORBIDE MONONITRATE 60 MG TAB.SR.24H (FP) PO SCH (10:00)
[2023-01-13] MEDS ORDERED: PATIENT'S OWN MEDICATION (NON-FORMULARY) (Brimonidine Tartrate/Timolol [Brimonidine-Timolo OD SCH (10:00)
[2023-01-13] MEDS: NYSTATIN 100,000 UNIT/GM TOPICAL CREAM 15 GM TUBE TP SCH ×2 (11:13→21:26)
[2023-01-13] MEDS: ISOSORBIDE DINITRATE 5 MG TABLET PO SCH (14:15)
[2023-01-13] MEDS: FUROSEMIDE 40 MG/4 ML INJECTABLE VIAL IVPB SCH (14:15)
[2023-01-13 15:18] VITALS: BMI 31.1
[2023-01-13 15:26] LABS: POTASSIUM 5.4 mmol/L (3.5-5.1)
[2023-01-13 15:29] LABS: CALCIUM 7.7 mg/dL (8.5-10.1)
[2023-01-13 15:30] LABS: BLOOD UREA NITROGEN 61.9 mg/dL (7-18)
[2023-01-13 15:33] LABS: CREATININE 5.3 mg/dL (0.55-1.3)
[2023-01-13] MEDS ORDERED: INSULIN (NOVOLOG) ASPART 100 UNITS/ML 10ML VIAL ONE (16:50)
[2023-01-13] MEDS ORDERED: ATORVASTATIN CA 40 MG TABLET (FP) ONE (19:46)
[2023-01-13] MEDS: ATORVASTATIN CA 80 MG TABLET (FP) PO SCH (21:18)
[2023-01-13] MEDS: hydrALAZINE HCL 50 MG TABLET (FP) PO SCH (21:18)
[2023-01-13] MEDS: INSULIN (LEVEMIR) 100 UNITS/ML UNITS SQ SCH (21:24)
[2023-01-14] MEDS: FUROSEMIDE 40 MG/4 ML INJECTABLE VIAL IVPB SCH (06:32)
[2023-01-14] MEDS: hydrALAZINE HCL 50 MG TABLET (FP) PO SCH ×2 (06:32→13:03)
[2023-01-14] MEDS: INSULIN SLIDING SCALE (NOVOLOG) 1 VIAL SQ SCH ×3 (06:33→16:38)
[2023-01-14] MEDS ORDERED: INSULIN (NOVOLOG) ASPART 100 UNITS/ML 10ML VIAL ONE ×2 (06:34→11:36)
[2023-01-14 07:36] LABS: HEMATOCRIT 29.4 % (35.4-49); HEMOGLOBIN 9.6 GM/dL (11.7-16.9); MCH 30.2 pg (25.7-33.7); MCHC 32.7 g/dl (32.0-35.9); MEAN CELL VOLUME 92.2 fl (80-96); MEAN PLT VOLUME 7.4 fl (7.5-11.1); PLATELET COUNT 161 10^3/uL (134-434); RBC 3.19 M/mm3 (4.00-5.60); RDW 15.9 % (11.9-15.9); WHITE BLOOD COUNT 2.7 K/mm3 (4.0-10.0)
[2023-01-14 08:24] LABS: ALBUMIN 2.4 g/dl (3.4-5.0); BILIRUBIN,TOTAL 0.5 mg/dL (0.2-1); BLOOD UREA NITROGEN 60.4 mg/dL (7-18); CALCIUM 7.9 mg/dL (8.5-10.1); CREATININE 5.2 mg/dL (0.55-1.3); MAGNESIUM 1.9 mg/dL (1.8-2.4); PHOSPHOROUS 4.8 mg/dL (2.5-4.9); TOT PROT 5.1 g/dl (6.4-8.2)
[2023-01-14] MEDS: CALCITRIOL 0.25 MCG CAPSULE (FP) PO SCH (09:17)
[2023-01-14] MEDS: CARVEDILOL 25 MG TABLET (FP) PO SCH (09:18)
[2023-01-14] MEDS: levETIRAcetam 500 MG TABLET (FP) PO SCH (09:18)
[2023-01-14] MEDS: INSULIN (LEVEMIR) 100 UNITS/ML UNITS SQ SCH (09:22)
[2023-01-14] MEDS: ISOSORBIDE DINITRATE 5 MG TABLET PO SCH ×2 (09:22→13:03)
[2023-01-14] MEDS: ENOXAPARIN NA (PORCINE) 80 MG/0.8 ML DISP.SYRIN SQ SCH (09:23)
[2023-01-14] MEDS: SODIUM ZIRCONIUM CYCLOSILICATE (LOKELMA) 5 GM PACKET PO SCH (09:23)
[2023-01-14] MEDS: BRIMONIDINE TARTRATE 0.2% OPHTHALMIC 5 ML BOTTLE OD SCH (09:24)
[2023-01-14] MEDS: TIMOLOL 0.5% OPHTHALMIC SOL 5 ML BOTTLE OD SCH (09:24)
[2023-01-14] MEDS: NYSTATIN 100,000 UNIT/GM TOPICAL CREAM 15 GM TUBE TP SCH (09:25)
[2023-01-14] MEDS ORDERED: FUROSEMIDE 40 MG/4 ML INJECTABLE VIAL IVPUSH SCH (14:00)
[2023-01-14] MEDS ORDERED: ISOSORBIDE MONONITRATE 60 MG TAB.SR.24H (FP) PO SCH (15:00)
[2023-01-14 15:43] VITALS: BP 156/85; PULSE 88; RESP 19; TEMP 96.7
[2023-01-14] MEDS ORDERED: INSULIN (LEVEMIR) 100 UNITS/ML UNITS SQ ONE (17:11)
== END 2023-01-14 18:03 | disposition home or self-care (01) | DRG 194 ==
LOC: JER 07:43 → JERBED 09:57 → J4W 11:04
PROVIDERS: ADMIT Internal Medicine; ATTEND Internal Medicine
DX: I13.0 Hypertensive heart and chronic kidney disease with heart failure and stage 1 through stage 4 chronic kidney disease, or unspecified chronic kidney disease (principal); G40.909 Epilepsy, unspecified, not intractable, without status epilepticus; D68.59 Other primary thrombophilia; E87.5 Hyperkalemia; N17.9 Acute kidney failure, unspecified; E78.5 Hyperlipidemia, unspecified; I24.8 Other forms of acute ischemic heart disease; E11.22 Type 2 diabetes mellitus with diabetic chronic kidney disease; N18.4 Chronic kidney disease, stage 4 (severe); I50.23 Acute on chronic systolic (congestive) heart failure; R80.9 Proteinuria, unspecified; B35.3 Tinea pedis
CPT/HCPCS: 0241U-QW; 36415; 71046-TC-FY; 80048; 80053; 80061; 82962; 83036; 83735; 83880; 84100; 84443; 84484; 85025; 85027; 85610; 93005; 93010; 93306-TC; 99285-25

== ENCOUNTER 2023-01-18 08:03 | Observation (INO) | payer OTHER ==
[2023-01-18 09:13] LABS: BASO % 0.6 % (0-2.0); EOS % 1.7 % (0-4.5); HEMATOCRIT 26.3 % (35.4-49); HEMOGLOBIN 8.7 GM/dL (11.7-16.9); MCH 30.3 pg (25.7-33.7); MEAN CELL VOLUME 91.8 fl (80-96); MEAN PLT VOLUME 8.3 fl (7.5-11.1); MONO % 11.8 % (3.8-10.2); NEUT % 58.9 % (42.8-82.8); PLATELET COUNT 131 10^3/uL (134-434); RBC 2.87 M/mm3 (4.00-5.60); RDW 14.7 % (11.9-15.9); WHITE BLOOD COUNT 3.3 K/mm3 (4.0-10.0)
[2023-01-18 09:27] LABS: INR 1.05 (0.83-1.09); PROTHROMBIN TIME (PATIENT) 12.2 SEC (9.7-13.0)
[2023-01-18 09:44] LABS: POTASSIUM 4.8 mmol/L (3.5-5.1)
[2023-01-18 09:49] LABS: CALCIUM 7.2 mg/dL (8.5-10.1)
[2023-01-18 09:51] LABS: ALBUMIN 2.5 g/dl (3.4-5.0)
[2023-01-18 09:53] LABS: CREATININE 5.6 mg/dL (0.55-1.3)
[2023-01-18 09:54] LABS: BILIRUBIN,TOTAL 0.4 mg/dL (0.2-1); TOT PROT 5.6 g/dl (6.4-8.2)
[2023-01-18 09:58] LABS: N-TERMINAL BNP 26258.4 pg/ml (5-125)
[2023-01-18 10:18] LABS: MAGNESIUM 1.9 mg/dL (1.8-2.4)
[2023-01-18 10:22] LABS: PHOSPHOROUS 4.8 mg/dL (2.5-4.9)
[2023-01-18] MEDS: ISOSORBIDE DINITRATE 20 MG TABLET PO SCH ×2 (12:37→18:28)
[2023-01-18] MEDS ORDERED: hydrALAZINE HCL 50 MG TABLET (FP) ONE (14:13)
[2023-01-18] MEDS: hydrALAZINE HCL 50 MG TABLET (FP) PO SCH ×2 (14:17→21:37)
[2023-01-18] MEDS: FUROSEMIDE 40 MG/4 ML INJECTABLE VIAL IVPUSH SCH (15:20)
[2023-01-18 19:58] VITALS: BMI 29.3
[2023-01-18] MEDS: levETIRAcetam 500 MG TABLET (FP) PO SCH (21:38)
[2023-01-18] MEDS: NYSTATIN 100,000 UNIT/GM TOPICAL CREAM 15 GM TUBE TP SCH (21:39)
[2023-01-18] MEDS: CARVEDILOL 25 MG TABLET (FP) PO SCH (21:54)
[2023-01-18] MEDS ORDERED: ATORVASTATIN CA 20 MG TABLET (FP) PO SCH (22:00)
[2023-01-19 03:42] VITALS: RESP 18
[2023-01-19] MEDS: FUROSEMIDE 40 MG/4 ML INJECTABLE VIAL IVPUSH SCH ×2 (05:52→13:30)
[2023-01-19] MEDS: hydrALAZINE HCL 50 MG TABLET (FP) PO SCH ×2 (05:52→13:30)
[2023-01-19 08:43] LABS: BASO % 0.7 % (0-2.0); EOS % 2.6 % (0-4.5); HEMATOCRIT 27.7 % (35.4-49); HEMOGLOBIN 9.1 GM/dL (11.7-16.9); LYMPH % 27.2 % (8-40); MCH 30.3 pg (25.7-33.7); MCHC 32.9 g/dl (32.0-35.9); MEAN CELL VOLUME 91.9 fl (80-96); MEAN PLT VOLUME 8.2 fl (7.5-11.1); MONO % 10.9 % (3.8-10.2); NEUT % 58.6 % (42.8-82.8); PLATELET COUNT 162 10^3/uL (134-434); RBC 3.01 M/mm3 (4.00-5.60); RDW 14.7 % (11.9-15.9); WHITE BLOOD COUNT 2.9 K/mm3 (4.0-10.0)
[2023-01-19] MEDS: CARVEDILOL 25 MG TABLET (FP) PO SCH ×3 (09:38→14:04)
[2023-01-19] MEDS: ISOSORBIDE DINITRATE 20 MG TABLET PO SCH ×2 (09:38→14:04)
[2023-01-19] MEDS: levETIRAcetam 500 MG TABLET (FP) PO SCH (09:38)
[2023-01-19] MEDS: NYSTATIN 100,000 UNIT/GM TOPICAL CREAM 15 GM TUBE TP SCH (09:39)
[2023-01-19] MEDS ORDERED: PATIENT'S OWN MEDICATION (NON-FORMULARY) (Brimonidine Tartrate/Timolol [Brimonidine-Timolo OD SCH (10:00)
[2023-01-19] MEDS ORDERED: CALCITRIOL 0.25 MCG CAPSULE (FP) PO SCH (10:00)
[2023-01-19] MEDS ORDERED: ENOXAPARIN NA (PORCINE) 80 MG/0.8 ML DISP.SYRIN SQ SCH (10:00)
[2023-01-19 11:00] VITALS: BP 140/69; PULSE 86; TEMP 97.6
[2023-01-19] MEDS ORDERED: INSULIN SLIDING SCALE (NOVOLOG) 1 VIAL SQ SCH (11:00)
[2023-01-19] MEDS ORDERED: EPOETIN ALFA-EPBX 10,000 UNIT/ML VIAL SQ ONE (12:00)
[2023-01-19] MEDS: TIMOLOL 0.5% OPHTHALMIC SOL 5 ML BOTTLE OD SCH ×2 (12:18→13:30)
[2023-01-19] MEDS: BRIMONIDINE TARTRATE 0.2% OPHTHALMIC 5 ML BOTTLE OD SCH ×2 (12:18→13:31)
[2023-01-19 12:51] LABS: CREATININE 5.5 mg/dL (0.55-1.3)
[2023-01-19 12:52] LABS: CALCIUM 7.8 mg/dL (8.5-10.1)
[2023-01-19 12:53] LABS: ALBUMIN 2.6 g/dl (3.4-5.0); BLOOD UREA NITROGEN 63.6 mg/dL (7-18)
[2023-01-19 12:54] LABS: PHOSPHOROUS 5.1 mg/dL (2.5-4.9)
[2023-01-19 12:56] LABS: MAGNESIUM 2.1 mg/dL (1.8-2.4); TOT PROT 5.7 g/dl (6.4-8.2)
[2023-01-19 12:58] LABS: BILIRUBIN,TOTAL 0.5 mg/dL (0.2-1)
== END 2023-01-19 14:27 | disposition home or self-care (01) ==
LOC: JER 08:03 → INTOOBSV 11:34 → JERBED 11:34 → UNDOADMOB 11:34 → JERBED 14:32 → J4W 18:01
PROVIDERS: ADMIT Internal Medicine; ATTEND Internal Medicine
PROC: 3E023GC Introduction of Other Therapeutic Substance into Muscle, Percutaneous Approach (ICD-10-PCS; principal; 2023-01-18)
PROC: 3E033GC Introduction of Other Therapeutic Substance into Peripheral Vein, Percutaneous Approach (ICD-10-PCS; 2023-01-18)
PROC: 3E013VG Introduction of Insulin into Subcutaneous Tissue, Percutaneous Approach (ICD-10-PCS; 2023-01-18)
DX: I13.0 Hypertensive heart and chronic kidney disease with heart failure and stage 1 through stage 4 chronic kidney disease, or unspecified chronic kidney disease (principal); I11.0 Hypertensive heart disease with heart failure; R56.9 Unspecified convulsions; E11.22 Type 2 diabetes mellitus with diabetic chronic kidney disease; Z86.718 Personal history of other venous thrombosis and embolism; Z79.01 Long term (current) use of anticoagulants; R80.9 Proteinuria, unspecified; E87.5 Hyperkalemia; D68.59 Other primary thrombophilia; Z88.8 Allergy status to other drugs, medicaments and biological substances
CPT/HCPCS: 36415; 71045-TC-FY; 80053; 82728; 82962; 83540; 83550; 83735; 83880; 84100; 84484; 85025; 85610; 93005; 93010; 96372; 96374; 99285-25; G0378; Q5106

== ENCOUNTER 2023-05-17 13:23 | Inpatient (IN) | payer OTHER ==
[2023-05-17 15:45] LABS: BASO % 0.6 % (0-2.0); EOS % 0.9 % (0-4.5); LYMPH % 19.4 % (8-40); MCH 31.1 pg (25.7-33.7); MCHC 33.2 g/dl (32.0-35.9); MEAN CELL VOLUME 93.5 fl (80-96); MEAN PLT VOLUME 8.5 fl (7.5-11.1); MONO % 9.7 % (3.8-10.2); NEUT % 69.4 % (42.8-82.8); PLATELET COUNT 134 10^3/uL (134-434); RBC 2.89 M/mm3 (4.00-5.60); RDW 15.6 % (11.9-15.9); WHITE BLOOD COUNT 3.4 K/mm3 (4.0-10.0)
[2023-05-17 15:50] LABS: INR 1.1 (0.83-1.09); PROTHROMBIN TIME (PATIENT) 12.7 SEC (9.7-13.0)
[2023-05-17 15:53] LABS: ACTIVATED PTT 26.5 SECONDS (25.2-36.5)
[2023-05-17 16:03] LABS: POTASSIUM 5.1 mmol/L (3.5-5.1)
[2023-05-17 16:05] LABS: CALCIUM 8.3 mg/dL (8.5-10.1)
[2023-05-17 16:06] LABS: ALBUMIN 2.8 g/dl (3.4-5.0); BLOOD UREA NITROGEN 78.1 mg/dL (7-18)
[2023-05-17 16:07] LABS: MAGNESIUM 1.8 mg/dL (1.8-2.4)
[2023-05-17 16:09] LABS: PHOSPHOROUS 5.2 mg/dL (2.5-4.9)
[2023-05-17 16:11] LABS: BILIRUBIN,TOTAL 0.5 mg/dL (0.2-1)
[2023-05-17] MEDS ORDERED: FUROSEMIDE 40 MG/4 ML INJECTABLE VIAL IVPUSH ONE ×2 (17:20)
[2023-05-17] MEDS ORDERED: FUROSEMIDE 40 MG/4 ML INJECTABLE VIAL ONE (17:38)
[2023-05-17] MEDS ORDERED: levETIRAcetam 500 MG TABLET (FP) PO ONE (23:20)
[2023-05-17] MEDS ORDERED: ATORVASTATIN CA 80 MG TABLET (FP) ONE (23:20)
[2023-05-17] MEDS ORDERED: hydrALAZINE HCL 25 MG TABLET (FP) ONE (23:20)
[2023-05-17] MEDS ORDERED: hydrALAZINE HCL 50 MG TABLET (FP) ONE (23:21)
[2023-05-17] MEDS: ATORVASTATIN CA 80 MG TABLET (FP) PO SCH (23:30)
[2023-05-17] MEDS: hydrALAZINE HCL 25 MG TABLET (FP) PO SCH (23:30)
[2023-05-17] MEDS: levETIRAcetam 500 MG TABLET (FP) PO SCH (23:31)
[2023-05-18] MEDS ORDERED: hydrALAZINE HCL 25 MG TABLET (FP) ONE ×2 (05:34→22:06)
[2023-05-18] MEDS ORDERED: hydrALAZINE HCL 50 MG TABLET (FP) ONE (05:34)
[2023-05-18] MEDS ORDERED: CARVEDILOL 25 MG TABLET (FP) ONE ×2 (05:34→23:31)
[2023-05-18] MEDS: hydrALAZINE HCL 25 MG TABLET (FP) PO SCH ×3 (05:54→22:10)
[2023-05-18] MEDS: CARVEDILOL 25 MG TABLET (FP) PO SCH ×3 (05:54→18:06)
[2023-05-18 07:51] LABS: HEMATOCRIT 25.8 % (35.4-49); HEMOGLOBIN 8.8 GM/dL (11.7-16.9); MCH 31.8 pg (25.7-33.7); MCHC 34.1 g/dl (32.0-35.9); PLATELET COUNT 115 10^3/uL (134-434); RBC 2.77 M/mm3 (4.00-5.60); RDW 15.5 % (11.9-15.9); WHITE BLOOD COUNT 3.4 K/mm3 (4.0-10.0)
[2023-05-18 07:52] LABS: BASO % 0.5 % (0-2.0); EOS % 1.1 % (0-4.5); LYMPH % 17.4 % (8-40); MONO % 10.9 % (3.8-10.2); NEUT % 70.1 % (42.8-82.8)
[2023-05-18] MEDS ORDERED: FUROSEMIDE 40 MG/4 ML INJECTABLE VIAL ONE ×2 (09:07→14:23)
[2023-05-18] MEDS: ISOSORBIDE DINITRATE 20 MG TABLET PO SCH ×3 (09:11→18:06)
[2023-05-18] MEDS: levETIRAcetam 500 MG TABLET (FP) PO SCH ×2 (09:12→22:10)
[2023-05-18] MEDS: ENOXAPARIN NA (PORCINE) 80 MG/0.8 ML DISP.SYRIN SQ SCH (09:12)
[2023-05-18 09:37] LABS: ALBUMIN 2.6 g/dl (3.4-5.0); BILIRUBIN,TOTAL 0.5 mg/dL (0.2-1); BLOOD UREA NITROGEN 82.8 mg/dL (7-18); CALCIUM 8.1 mg/dL (8.5-10.1); CREATININE 6.2 mg/dL (0.55-1.3); POTASSIUM 5.5 mmol/L (3.5-5.1); TOT PROT 5.5 g/dl (6.4-8.2)
[2023-05-18] MEDS ORDERED: FUROSEMIDE 40 MG/4 ML INJECTABLE VIAL IVPUSH SCH (10:00)
[2023-05-18] MEDS ORDERED: SODIUM ZIRCONIUM CYCLOSILICATE (LOKELMA) 10 GM PACKET ONE (14:23)
[2023-05-18] MEDS: SODIUM ZIRCONIUM CYCLOSILICATE (LOKELMA) 5 GM PACKET PO SCH (14:29)
[2023-05-18] MEDS: FUROSEMIDE 40 MG/4 ML INJECTABLE VIAL IVPB SCH (14:29)
[2023-05-18] MEDS ORDERED: levETIRAcetam 500 MG TABLET (FP) PO ONE (22:06)
[2023-05-18] MEDS ORDERED: ATORVASTATIN CA 80 MG TABLET (FP) ONE (22:11)
[2023-05-18] MEDS: ATORVASTATIN CA 80 MG TABLET (FP) PO SCH (22:12)
[2023-05-19] MEDS: CARVEDILOL 25 MG TABLET (FP) PO SCH ×4 (00:19→17:44)
[2023-05-19 01:28] VITALS: BMI 29.2
[2023-05-19] MEDS: FUROSEMIDE 40 MG/4 ML INJECTABLE VIAL IVPB SCH ×2 (06:03→14:54)
[2023-05-19] MEDS ORDERED: INSULIN (NOVOLOG) ASPART 100 UNITS/ML 10ML VIAL ONE ×2 (07:34→11:39)
[2023-05-19] MEDS: INSULIN SLIDING SCALE (NOVOLOG) 1 VIAL SQ SCH ×3 (07:35→17:48)
[2023-05-19] MEDS: levETIRAcetam 500 MG TABLET (FP) PO SCH (09:20)
[2023-05-19] MEDS: ISOSORBIDE DINITRATE 20 MG TABLET PO SCH ×3 (09:21→17:43)
[2023-05-19] MEDS: ENOXAPARIN NA (PORCINE) 80 MG/0.8 ML DISP.SYRIN SQ SCH (09:22)
[2023-05-19] MEDS: SODIUM ZIRCONIUM CYCLOSILICATE (LOKELMA) 5 GM PACKET PO SCH (09:22)
[2023-05-19 09:42] LABS: HEMATOCRIT 25.8 % (35.4-49); HEMOGLOBIN 8.5 GM/dL (11.7-16.9); MCH 30.6 pg (25.7-33.7); MEAN CELL VOLUME 92.8 fl (80-96); PLATELET COUNT 119 10^3/uL (134-434); RBC 2.78 M/mm3 (4.00-5.60); RDW 15.5 % (11.9-15.9); WHITE BLOOD COUNT 2.9 K/mm3 (4.0-10.0)
[2023-05-19 10:07] LABS: POTASSIUM 4.8 mmol/L (3.5-5.1)
[2023-05-19 10:10] LABS: BLOOD UREA NITROGEN 88.9 mg/dL (7-18); MAGNESIUM 1.9 mg/dL (1.8-2.4)
[2023-05-19 10:11] LABS: ALBUMIN 2.5 g/dl (3.4-5.0)
[2023-05-19 10:13] LABS: CREATININE 6.4 mg/dL (0.55-1.3); PHOSPHOROUS 5.7 mg/dL (2.5-4.9)
[2023-05-19 10:15] LABS: BILIRUBIN,TOTAL 0.8 mg/dL (0.2-1)
[2023-05-19] MEDS ORDERED: PANTOPRAZOLE SODIUM 40 MG VIAL IVPUSH SCH (10:15)
[2023-05-19 10:17] LABS: TOT PROT 5.5 g/dl (6.4-8.2)
[2023-05-19] MEDS ORDERED: INSULIN (LEVEMIR) 100 UNITS/ML UNITS SQ SCH (10:45)
[2023-05-19 16:15] VITALS: RESP 18; TEMP 97.8
[2023-05-19 18:33] VITALS: BP 148/96; PULSE 76
== END 2023-05-19 19:00 | disposition short-term general hospital (02) | DRG 194 ==
LOC: JER 13:23 → JERBED 16:25 → OBSVTOIN 05-18 14:17 → J4W 05-19 01:07
PROVIDERS: ADMIT Internal Medicine; ATTEND Internal Medicine
DX: I13.2 Hypertensive heart and chronic kidney disease with heart failure and with stage 5 chronic kidney disease, or end stage renal disease (principal); I50.23 Acute on chronic systolic (congestive) heart failure; N18.5 Chronic kidney disease, stage 5; E11.22 Type 2 diabetes mellitus with diabetic chronic kidney disease; D68.59 Other primary thrombophilia; E78.00 Pure hypercholesterolemia, unspecified; G40.909 Epilepsy, unspecified, not intractable, without status epilepticus; D64.9 Anemia, unspecified; Z86.718 Personal history of other venous thrombosis and embolism; R80.9 Proteinuria, unspecified
CPT/HCPCS: 0241U-QW; 36415; 71045-TC-FY; 71250-TC; 80053; 82962; 83735; 83880; 84100; 84484; 85025; 85027; 85610; 85730; 86704; 86705; 86850; 86900; 86901; 87340; 87517; 93005; 93010; 93306-TC; 93970-TC; 99285-25; G0378

== ENCOUNTER 2023-05-24 08:21 | Observation (INO) | payer OTHER ==
[2023-05-24 08:38] VITALS: BMI 28.6
[2023-05-24 10:33] LABS: BASO % 0.7 % (0-2.0); EOS % 0.9 % (0-4.5); HEMATOCRIT 23.5 % (35.4-49); HEMOGLOBIN 7.7 GM/dL (11.7-16.9); LYMPH % 17.7 % (8-40); MCH 30.5 pg (25.7-33.7); MCHC 32.8 g/dl (32.0-35.9); MEAN CELL VOLUME 92.9 fl (80-96); MEAN PLT VOLUME 7.4 fl (7.5-11.1); MONO % 9.8 % (3.8-10.2); NEUT % 70.9 % (42.8-82.8); PLATELET COUNT 98 10^3/uL (134-434); RBC 2.53 M/mm3 (4.00-5.60); RDW 15.2 % (11.9-15.9); WHITE BLOOD COUNT 3.3 K/mm3 (4.0-10.0)
[2023-05-24 10:39] LABS: INR 1.1 (0.83-1.09); PROTHROMBIN TIME (PATIENT) 12.8 SEC (9.7-13.0)
[2023-05-24 10:41] LABS: ACTIVATED PTT 28.2 SECONDS (25.2-36.5)
[2023-05-24 11:18] LABS: CHLORIDE 105 mmol/L (98-107); SODIUM 133 mmol/L (136-145)
[2023-05-24 11:20] LABS: CALCIUM 8.1 mg/dL (8.5-10.1)
[2023-05-24 11:21] LABS: ALBUMIN 2.6 g/dl (3.4-5.0); ANION GAP 9 mmol/L (4-13); CO2 20 mmol/L (21-32)
[2023-05-24 11:24] LABS: PHOSPHOROUS 5.9 mg/dL (2.5-4.9); SGOT/AST 22 U/L (15-37); SGPT/ALT 28 U/L (13-61)
[2023-05-24 11:25] LABS: BILIRUBIN,TOTAL 0.5 mg/dL (0.2-1)
[2023-05-24 11:26] LABS: TOT PROT 5.6 g/dl (6.4-8.2)
[2023-05-24 11:27] LABS: ALK PHOS 112 U/L (45-117)
[2023-05-24 11:31] LABS: BLOOD UREA NITROGEN 111.1 mg/dL (7-18); CREATININE 7.5 mg/dL (0.55-1.3); GLUCOSE,RANDOM 579 mg/dL (74-106)
[2023-05-24] MEDS ORDERED: SODIUM CHLORIDE 250 ML IV PRN ×2 (12:44→16:23)
[2023-05-24] MEDS: hydrALAZINE HCL 25 MG TABLET (FP) PO SCH ×2 (14:50→21:43)
[2023-05-24] MEDS: INSULIN ASPART SLIDING SCALE (NOVOLOG) 1 VIAL SQ SCH ×2 (17:21→21:44)
[2023-05-24] MEDS: ISOSORBIDE DINITRATE 20 MG TABLET PO SCH (17:47)
[2023-05-24] MEDS: CARVEDILOL 25 MG TABLET (FP) PO SCH (21:44)
[2023-05-24] MEDS: PANTOPRAZOLE 40 MG TABLET PO SCH (21:44)
[2023-05-24] MEDS: levETIRAcetam 500 MG TABLET (FP) PO SCH (21:44)
[2023-05-24] MEDS: ATORVASTATIN CA 80 MG TABLET (FP) PO SCH (21:44)
[2023-05-25] MEDS: INSULIN ASPART SLIDING SCALE (NOVOLOG) 1 VIAL SQ SCH ×4 (06:15→21:34)
[2023-05-25] MEDS: hydrALAZINE HCL 25 MG TABLET (FP) PO SCH ×3 (06:15→21:30)
[2023-05-25 09:37] LABS: BASO % 0.4 % (0-2.0); HEMOGLOBIN 7.7 GM/dL (11.7-16.9); LYMPH % 24.1 % (8-40); MCH 30.9 pg (25.7-33.7); MCHC 33.5 g/dl (32.0-35.9); MEAN PLT VOLUME 8.1 fl (7.5-11.1); MONO % 13.4 % (3.8-10.2); NEUT % 61.1 % (42.8-82.8); PLATELET COUNT 121 10^3/uL (134-434); RDW 15.2 % (11.9-15.9); WHITE BLOOD COUNT 3.2 K/mm3 (4.0-10.0)
[2023-05-25] MEDS: CARVEDILOL 25 MG TABLET (FP) PO SCH ×2 (09:40→21:31)
[2023-05-25] MEDS: levETIRAcetam 500 MG TABLET (FP) PO SCH ×2 (09:40→21:31)
[2023-05-25] MEDS: BRIMONIDINE TARTRATE 0.2% OPHTHALMIC 5 ML BOTTLE OD SCH (09:40)
[2023-05-25] MEDS: ENOXAPARIN NA (PORCINE) 80 MG/0.8 ML DISP.SYRIN SQ SCH (09:40)
[2023-05-25] MEDS: PANTOPRAZOLE 40 MG TABLET PO SCH ×2 (09:41→21:32)
[2023-05-25] MEDS: LATANOPROST 0.005% OPHTH SOLN 2.5ML BOTTLE OD SCH (09:41)
[2023-05-25] MEDS ORDERED: EPOETIN ALFA-EPBX 10,000 UNIT/ML VIAL IVPUSH ONE (10:00)
[2023-05-25] MEDS ORDERED: SODIUM ZIRCONIUM CYCLOSILICATE (LOKELMA) 10 GM PACKET PO SCH (10:00)
[2023-05-25] MEDS: CALCITRIOL 0.25 MCG CAPSULE (FP) PO SCH (10:31)
[2023-05-25 11:03] LABS: ALBUMIN 2.5 g/dl (3.4-5.0); CALCIUM 8.3 mg/dL (8.5-10.1); MAGNESIUM 1.9 mg/dL (1.8-2.4)
[2023-05-25 11:06] LABS: BILIRUBIN,TOTAL 0.9 mg/dL (0.2-1); PHOSPHOROUS 4.5 mg/dL (2.5-4.9)
[2023-05-25 11:08] LABS: TOT PROT 5.6 g/dl (6.4-8.2)
[2023-05-25 11:09] LABS: BLOOD UREA NITROGEN 84.9 mg/dL (7-18)
[2023-05-25] MEDS: ISOSORBIDE DINITRATE 20 MG TABLET PO SCH ×3 (13:46→17:06)
[2023-05-25] MEDS: ATORVASTATIN CA 80 MG TABLET (FP) PO SCH (21:31)
[2023-05-26] MEDS: hydrALAZINE HCL 25 MG TABLET (FP) PO SCH ×3 (06:21→21:21)
[2023-05-26] MEDS: INSULIN ASPART SLIDING SCALE (NOVOLOG) 1 VIAL SQ SCH ×4 (06:23→21:19)
[2023-05-26 08:29] LABS: BASO % 0.6 % (0-2.0); EOS % 0.8 % (0-4.5); HEMATOCRIT 24.1 % (35.4-49); HEMOGLOBIN 7.9 GM/dL (11.7-16.9); LYMPH % 23.5 % (8-40); MCH 30.4 pg (25.7-33.7); MEAN CELL VOLUME 92.2 fl (80-96); MEAN PLT VOLUME 7.9 fl (7.5-11.1); MONO % 15.6 % (3.8-10.2); NEUT % 59.5 % (42.8-82.8); PLATELET COUNT 125 10^3/uL (134-434); RBC 2.61 M/mm3 (4.00-5.60); RDW 15.3 % (11.9-15.9); WHITE BLOOD COUNT 3.2 K/mm3 (4.0-10.0)
[2023-05-26 08:44] LABS: POTASSIUM 3.6 mmol/L (3.5-5.1)
[2023-05-26] MEDS: ISOSORBIDE DINITRATE 20 MG TABLET PO SCH ×3 (09:03→17:03)
[2023-05-26 09:28] LABS: ALBUMIN 2.4 g/dl (3.4-5.0); CALCIUM 8.3 mg/dL (8.5-10.1); MAGNESIUM 1.8 mg/dL (1.8-2.4)
[2023-05-26 09:32] LABS: CREATININE 4.6 mg/dL (0.55-1.3); PHOSPHOROUS 3.6 mg/dL (2.5-4.9)
[2023-05-26] MEDS: levETIRAcetam 500 MG TABLET (FP) PO SCH ×2 (10:00→21:21)
[2023-05-26] MEDS: CARVEDILOL 25 MG TABLET (FP) PO SCH ×2 (10:00→21:21)
[2023-05-26] MEDS: PANTOPRAZOLE 40 MG TABLET PO SCH ×2 (10:01→21:21)
[2023-05-26] MEDS: CALCITRIOL 0.25 MCG CAPSULE (FP) PO SCH (10:01)
[2023-05-26] MEDS: ENOXAPARIN NA (PORCINE) 80 MG/0.8 ML DISP.SYRIN SQ SCH (10:01)
[2023-05-26 10:02] LABS: BILIRUBIN,TOTAL 0.7 mg/dL (0.2-1)
[2023-05-26 10:52] LABS: BLOOD UREA NITROGEN 57.2 mg/dL (7-18)
[2023-05-26] MEDS: LATANOPROST 0.005% OPHTH SOLN 2.5ML BOTTLE OD SCH (11:13)
[2023-05-26] MEDS: BRIMONIDINE TARTRATE 0.2% OPHTHALMIC 5 ML BOTTLE OD SCH (11:13)
[2023-05-26 11:22] LABS: TOT PROT 5.4 g/dl (6.4-8.2)
[2023-05-26] MEDS: ATORVASTATIN CA 80 MG TABLET (FP) PO SCH (21:21)
[2023-05-27] MEDS: hydrALAZINE HCL 25 MG TABLET (FP) PO SCH ×2 (06:22→14:16)
[2023-05-27] MEDS: INSULIN ASPART SLIDING SCALE (NOVOLOG) 1 VIAL SQ SCH ×2 (06:27→11:45)
[2023-05-27] MEDS: levETIRAcetam 500 MG TABLET (FP) PO SCH (09:06)
[2023-05-27] MEDS: PANTOPRAZOLE 40 MG TABLET PO SCH (09:06)
[2023-05-27] MEDS: CALCITRIOL 0.25 MCG CAPSULE (FP) PO SCH (09:06)
[2023-05-27] MEDS: ENOXAPARIN NA (PORCINE) 80 MG/0.8 ML DISP.SYRIN SQ SCH (09:06)
[2023-05-27] MEDS: ISOSORBIDE DINITRATE 20 MG TABLET PO SCH ×2 (09:06→13:17)
[2023-05-27] MEDS: CARVEDILOL 25 MG TABLET (FP) PO SCH (09:06)
[2023-05-27] MEDS: BRIMONIDINE TARTRATE 0.2% OPHTHALMIC 5 ML BOTTLE OD SCH (09:07)
[2023-05-27] MEDS: LATANOPROST 0.005% OPHTH SOLN 2.5ML BOTTLE OD SCH (09:08)
[2023-05-27 10:56] LABS: HEMATOCRIT 24.2 % (35.4-49); HEMOGLOBIN 8.2 GM/dL (11.7-16.9); MCH 30.9 pg (25.7-33.7); MCHC 33.8 g/dl (32.0-35.9); MEAN CELL VOLUME 91.4 fl (80-96); MEAN PLT VOLUME 8.3 fl (7.5-11.1); PLATELET COUNT 120 10^3/uL (134-434); RBC 2.65 M/mm3 (4.00-5.60); RDW 15.1 % (11.9-15.9); WHITE BLOOD COUNT 3.6 K/mm3 (4.0-10.0)
[2023-05-27 11:18] LABS: POTASSIUM 3.7 mmol/L (3.5-5.1)
[2023-05-27 11:21] LABS: ALBUMIN 2.5 g/dl (3.4-5.0); BLOOD UREA NITROGEN 60.8 mg/dL (7-18); CALCIUM 8.3 mg/dL (8.5-10.1)
[2023-05-27 11:23] LABS: CREATININE 5.1 mg/dL (0.55-1.3)
[2023-05-27 11:26] LABS: BILIRUBIN,TOTAL 0.6 mg/dL (0.2-1); TOT PROT 5.4 g/dl (6.4-8.2)
[2023-05-27] MEDS ORDERED: EPOETIN ALFA-EPBX 10,000 UNIT/ML VIAL IVPUSH ONE (12:00)
[2023-05-27] MEDS ORDERED: SODIUM CHLORIDE 250 ML IV PRN (12:00)
[2023-05-27] MEDS ORDERED: SACUBITRIL/VALSARTAN 24 MG-26 MG TABLET PO SCH ×2 (12:00→13:00)
[2023-05-27] MEDS ORDERED: EMPAGLIFLOZIN (JARDIANCE) 10 MG TABLET PO SCH (12:45)
[2023-05-27 12:56] VITALS: RESP 18
[2023-05-27 15:48] VITALS: BP 149/91; PULSE 97; TEMP 98.6
== END 2023-05-27 14:35 | disposition home or self-care (01) ==
LOC: JER 08:21 → JERBED 09:15 → J6S 17:27
PROVIDERS: ADMIT Internal Medicine; ATTEND Internal Medicine
PROC: 3E033GC Introduction of Other Therapeutic Substance into Peripheral Vein, Percutaneous Approach (ICD-10-PCS; principal; 2023-05-24)
PROC: 3E013VG Introduction of Insulin into Subcutaneous Tissue, Percutaneous Approach (ICD-10-PCS; 2023-05-24)
DX: I13.2 Hypertensive heart and chronic kidney disease with heart failure and with stage 5 chronic kidney disease, or end stage renal disease (principal); I50.9 Heart failure, unspecified; N18.6 End stage renal disease; D68.59 Other primary thrombophilia; E11.22 Type 2 diabetes mellitus with diabetic chronic kidney disease; G40.909 Epilepsy, unspecified, not intractable, without status epilepticus; Z99.2 Dependence on renal dialysis; D64.89 Other specified anemias; R80.9 Proteinuria, unspecified; J81.1 Chronic pulmonary edema; Z88.8 Allergy status to other drugs, medicaments and biological substances
CPT/HCPCS: 36415; 71045-TC-FY; 80053; 82962; 83735; 84100; 85025; 85027; 85610; 85730; 86704; 86705; 86803; 87340; 87517; 93005; 93010; 96372; 96374; 96376; 99285-25; G0378; Q5106

== ENCOUNTER 2023-06-01 09:22 | Observation (INO) | payer OTHER ==
[2023-06-01 11:13] LABS: BASO % 0.7 % (0-2.0); EOS % 0.9 % (0-4.5); HEMATOCRIT 26.6 % (35.4-49); HEMOGLOBIN 8.7 GM/dL (11.7-16.9); LYMPH % 20.1 % (8-40); MCH 29.9 pg (25.7-33.7); MCHC 32.8 g/dl (32.0-35.9); MEAN CELL VOLUME 91.2 fl (80-96); MEAN PLT VOLUME 8.2 fl (7.5-11.1); MONO % 12.6 % (3.8-10.2); NEUT % 65.7 % (42.8-82.8); PLATELET COUNT 169 10^3/uL (134-434); RBC 2.91 M/mm3 (4.00-5.60); RDW 14.6 % (11.9-15.9); WHITE BLOOD COUNT 3.5 K/mm3 (4.0-10.0)
[2023-06-01] MEDS ORDERED: SODIUM CHLORIDE 250 ML IV PRN (11:21)
[2023-06-01 11:25] LABS: CHLORIDE 97 mmol/L (98-107); POTASSIUM 4.7 mmol/L (3.5-5.1); SODIUM 134 mmol/L (136-145)
[2023-06-01 11:26] LABS: CALCIUM 8.8 mg/dL (8.5-10.1)
[2023-06-01 11:27] LABS: ALBUMIN 2.8 g/dl (3.4-5.0); ANION GAP 9 mmol/L (4-13); CO2 28 mmol/L (21-32)
[2023-06-01 11:30] LABS: CREATININE 6.7 mg/dL (0.55-1.3); PHOSPHOROUS 5.5 mg/dL (2.5-4.9); SGOT/AST 21 U/L (15-37); SGPT/ALT 36 U/L (13-61)
[2023-06-01 11:31] LABS: BILIRUBIN,TOTAL 0.6 mg/dL (0.2-1); TOT PROT 6.5 g/dl (6.4-8.2)
[2023-06-01 11:33] LABS: ALK PHOS 106 U/L (45-117)
[2023-06-01 11:40] LABS: GLUCOSE,RANDOM 636 mg/dL (74-106)
[2023-06-01] MEDS ORDERED: INSULIN (NOVOLOG) ASPART 100 UNITS/ML 10ML VIAL ONE (11:59)
[2023-06-01] MEDS ORDERED: INSULIN ASPART SLIDING SCALE (NOVOLOG) 1 VIAL SQ SCH ×4 (12:00→14:02)
[2023-06-01] MEDS ORDERED: levETIRAcetam 500 MG TABLET (FP) PO SCH (14:15)
[2023-06-01] MEDS ORDERED: FUROSEMIDE 40 MG TABLET (FP) PO SCH (14:15)
[2023-06-01] MEDS ORDERED: FUROSEMIDE 40 MG TABLET (FP) ONE (14:30)
[2023-06-01] MEDS ORDERED: levETIRAcetam 500 MG TABLET (FP) PO ONE (14:30)
[2023-06-01] MEDS ORDERED: EPOETIN ALFA-EPBX 10,000 UNIT/ML VIAL SQ ONE (16:00)
[2023-06-01 20:02] VITALS: BMI 29.1
[2023-06-01] MEDS ORDERED: ISOSORBIDE DINITRATE 20 MG TABLET PO SCH (22:00)
[2023-06-01] MEDS ORDERED: SACUBITRIL/VALSARTAN 24 MG-26 MG TABLET PO SCH (22:00)
[2023-06-01] MEDS ORDERED: ATORVASTATIN CA 40 MG TABLET (FP) PO SCH (22:00)
[2023-06-01] MEDS: PANTOPRAZOLE 40 MG TABLET PO SCH (22:50)
[2023-06-01] MEDS: CARVEDILOL 25 MG TABLET (FP) PO SCH (22:50)
[2023-06-01] MEDS: hydrALAZINE HCL 50 MG TABLET (FP) PO SCH (22:51)
[2023-06-02] MEDS: hydrALAZINE HCL 50 MG TABLET (FP) PO SCH ×2 (05:45→13:29)
[2023-06-02] MEDS ORDERED: INSULIN ASPART SLIDING SCALE (NOVOLOG) 1 VIAL SQ SCH ×2 (07:10→13:39)
[2023-06-02 09:25] LABS: BASO % 0.6 % (0-2.0); LYMPH % 21.5 % (8-40); MCH 29.8 pg (25.7-33.7); MCHC 32.4 g/dl (32.0-35.9); MEAN CELL VOLUME 92.2 fl (80-96); MEAN PLT VOLUME 8.1 fl (7.5-11.1); MONO % 13.3 % (3.8-10.2); NEUT % 63.6 % (42.8-82.8); PLATELET COUNT 139 10^3/uL (134-434); RBC 3.03 M/mm3 (4.00-5.60); RDW 14.3 % (11.9-15.9); WHITE BLOOD COUNT 3.1 K/mm3 (4.0-10.0)
[2023-06-02 09:44] LABS: POTASSIUM 3.9 mmol/L (3.5-5.1)
[2023-06-02 09:53] LABS: ALBUMIN 2.6 g/dl (3.4-5.0)
[2023-06-02 09:56] LABS: CALCIUM 8.2 mg/dL (8.5-10.1); CREATININE 4.7 mg/dL (0.55-1.3); PHOSPHOROUS 3.9 mg/dL (2.5-4.9)
[2023-06-02 09:57] LABS: BILIRUBIN,TOTAL 0.8 mg/dL (0.2-1); MAGNESIUM 1.8 mg/dL (1.8-2.4)
[2023-06-02] MEDS ORDERED: EMPAGLIFLOZIN (JARDIANCE) 10 MG TABLET PO SCH (10:00)
[2023-06-02] MEDS ORDERED: BRIMONIDINE TARTRATE 0.2% OPHTHALMIC 5 ML BOTTLE OD SCH (10:00)
[2023-06-02] MEDS ORDERED: SACUBITRIL/VALSARTAN 49 MG-51 MG TABLET PO SCH (10:00)
[2023-06-02] MEDS ORDERED: ENOXAPARIN NA (PORCINE) 80 MG/0.8 ML DISP.SYRIN SQ SCH (10:00)
[2023-06-02] MEDS ORDERED: LATANOPROST 0.005% OPHTH SOLN 2.5ML BOTTLE OD SCH (10:00)
[2023-06-02] MEDS ORDERED: CALCITRIOL 0.25 MCG CAPSULE (FP) PO SCH (10:00)
[2023-06-02 10:02] LABS: BLOOD UREA NITROGEN 41.8 mg/dL (7-18)
[2023-06-02] MEDS ORDERED: INSULIN (NOVOLOG) ASPART 100 UNITS/ML 10ML VIAL ONE ×3 (10:41→18:04)
[2023-06-02] MEDS: CARVEDILOL 25 MG TABLET (FP) PO SCH (10:44)
[2023-06-02] MEDS: PANTOPRAZOLE 40 MG TABLET PO SCH (10:44)
[2023-06-02] MEDS: ISOSORBIDE DINITRATE 20 MG TABLET PO SCH ×2 (10:45→13:27)
[2023-06-02] MEDS ORDERED: INSULIN (LEVEMIR) 100 UNITS/ML UNITS SQ SCH ×2 (11:45→13:40)
[2023-06-02 12:07] VITALS: RESP 18
[2023-06-02] MEDS ORDERED: INSULIN (LEVEMIR) 100 UNITS/ML UNITS SQ ONE ×2 (13:45→18:03)
[2023-06-02] MEDS ORDERED: levETIRAcetam 500 MG TABLET (FP) PO SCH (14:03)
[2023-06-02 15:05] VITALS: BP 123/71; PULSE 91; TEMP 98.1
[2023-06-02] MEDS ORDERED: ATORVASTATIN CA 80 MG TABLET (FP) PO SCH (22:00)
== END 2023-06-02 16:00 | disposition left against medical advice (07) ==
LOC: JER 09:22 → JERBED 11:52 → J7W 18:55
PROVIDERS: ADMIT Internal Medicine; ATTEND Nurse Practitioner Acute Care
PROC: 3E023GC Introduction of Other Therapeutic Substance into Muscle, Percutaneous Approach (ICD-10-PCS; principal; 2023-06-01)
PROC: 3E013VG Introduction of Insulin into Subcutaneous Tissue, Percutaneous Approach (ICD-10-PCS; 2023-06-01)
DX: I13.2 Hypertensive heart and chronic kidney disease with heart failure and with stage 5 chronic kidney disease, or end stage renal disease (principal); Z99.2 Dependence on renal dialysis; E11.65 Type 2 diabetes mellitus with hyperglycemia; N18.9 Chronic kidney disease, unspecified; Z79.01 Long term (current) use of anticoagulants; E11.22 Type 2 diabetes mellitus with diabetic chronic kidney disease; G40.909 Epilepsy, unspecified, not intractable, without status epilepticus; N18.6 End stage renal disease; R80.9 Proteinuria, unspecified; D68.59 Other primary thrombophilia; D64.9 Anemia, unspecified; E78.00 Pure hypercholesterolemia, unspecified; Z86.718 Personal history of other venous thrombosis and embolism; Z95.5 Presence of coronary angioplasty implant and graft; Z88.8 Allergy status to other drugs, medicaments and biological substances
CPT/HCPCS: 36415; 71046-TC-FY; 80053; 82962; 83036; 83735; 84100; 85025; 93005; 93010; 96372; 99285-25; G0378; Q5106

== ENCOUNTER 2023-09-29 04:12 | Day surgery (SDC) | payer OTHER ==
[2023-09-15 12:13] VITALS: BMI 26.9
[2023-09-29] MEDS ORDERED: LIDOCAINE HCL 1%, 10 MG/ML (20ML VIAL) ONE (07:59)
[2023-09-29] MEDS ORDERED: HEPARIN NA (PORCINE) 5,000 UNITS/ML 1ML VIAL ONE (07:59)
[2023-09-29] MEDS ORDERED: POVIDONE-IODINE OINTMENT 10% - 28.4 GM TUBE ONE (07:59)
[2023-09-29] MEDS ORDERED: MIDAZOLAM HCL 2 MG/2 ML SINGLE DOSE VIAL ONE ×2 (10:58→12:12)
[2023-09-29] MEDS: ceFAZolin SODIUM 1 GM VIAL IVPB ONE (11:00)
[2023-09-29] MEDS ORDERED: BUPIVACAINE HCL/PF 0.5% (5MG/ML) 10 ML VIAL ONE (11:02)
[2023-09-29] MEDS: BUPIVACAINE HCL/PF 0.5% (5 MG/ML) 30 ML VIAL IJ ONE ×2 (11:11)
[2023-09-29] MEDS: LIDOCAINE HCL 1%, 10 MG/ML (50 mL VIAL) SQ ONE ×2 (11:11)
[2023-09-29] MEDS: POVIDONE-IODINE OINTMENT 10% - 28.4 GM TUBE TP ONE (12:40)
[2023-09-29] MEDS ORDERED: ONDANSETRON 4 MG/2 ML VIAL IVPUSH PRN (12:54)
[2023-09-29] MEDS ORDERED: SODIUM CHLORIDE 1,000 ML IV SCH (13:00)
[2023-09-29 13:58] LABS: VENOUS BASE EXCESS 0.4 mmol/L (-2-2); VENOUS O2 SATURATION 81.3 % (70-80); VENOUS PCO2 46.1 mmHg (38-52); VENOUS PH 7.37 (7.310-7.410)
[2023-09-29 14:19] LABS: POTASSIUM 3.4 mmol/L (3.5-5.1)
[2023-09-29 14:20] LABS: CALCIUM 8.3 mg/dL (8.5-10.1)
[2023-09-29 14:21] LABS: BLOOD UREA NITROGEN 45.3 mg/dL (7-18)
[2023-09-29 14:24] LABS: CREATININE 5.7 mg/dL (0.55-1.3)
[2023-09-29 14:35] VITALS: RESP 18
[2023-09-29 15:02] VITALS: TEMP 98.2
[2023-09-29 17:26] VITALS: BP 130/71; PULSE 88
== END 2023-09-29 17:50 | disposition home or self-care (01) ==
LOC: JASUSAT 04:12
PROVIDERS: ATTEND Surgery Vascular Surgery
PROC: 03180ZD Bypass Left Brachial Artery to Upper Arm Vein, Open Approach (ICD-10-PCS; principal; 2023-09-29 11:30)
DX: I13.11 Hypertensive heart and chronic kidney disease without heart failure, with stage 5 chronic kidney disease, or end stage renal disease (principal); E11.22 Type 2 diabetes mellitus with diabetic chronic kidney disease; N18.6 End stage renal disease; Z99.2 Dependence on renal dialysis; Z79.4 Long term (current) use of insulin
CPT/HCPCS: 36415; 80048; 82010; 82803; 82962; 94760; J1644